=== PATIENT | male | born 1945 | race Caucasian/White ===

== ENCOUNTER 2016-11-28 22:16 | Inpatient (IN) | payer MEDICARE, OTHER ==
[~2016-11-28] VITALS: Ht 172.7 cm; Wt 107.0 kg
[2016-11-28] MEDS ORDERED: LIDOCAINE 2% JEL UROJET 10 ML MM ONE (23:00)
[2016-11-28 23:19] LABS: ANION GAP 20 (5-14); CALCIUM, SERUM 7.4 mg/dL (8.5-10.1); CARBON DIOXIDE 17 mmol/L (21-32); CHLORIDE 116 mmol/L (98-107); GLUCOSE 296 mg/dL (74-106); POTASSIUM 3.9 mmol/L (3.5-5.1); SODIUM SERUM 149 mmol/L (136-145); UREA NITROGEN, BLOOD 59 mg/dL (7-18)
[2016-11-28 23:22] LABS: INR 1.04 (0.87-1.13); PROTHROMBIN TIME 11.2 SECS (9.5-12.7)
[2016-11-28 23:25] LABS: ACETAMINOPHEN 0 ug/ml (10-30); ALANINE AMINOTRANSFERASE 14 U/L (12-78); ALBUMIN 2.5 g/dL (3.4-5.0); ASPARTATE AMINOTRANSFERASE 15 U/L (15-37); BILIRUBIN,DIRECT 0.1 mg/dL (0.0-0.2); BILIRUBIN,TOTAL 0.3 mg/dL (0.2-1.0); INDIRECT BILIRUBIN 0.2 mg/dL (0.0-1.1); SALICYLATE 1.3 mg/dL (2.8-20.0); TOTAL PROTEIN, SERUM 6.1 g/dL (6.4-8.2)
[2016-11-28 23:27] LABS: TROPONIN I 0.206 ng/mL (0.00-0.056)
[2016-11-28 23:28] LABS: KETONES,URINE NEGATIVE (NEGATIVE); LEUKOCYTE ESTERASE ,URINE NEGATIVE (NEGATIVE)
[2016-11-28 23:31] LABS: CANNABINOID, URINE NEGATIVE (NEGATIVE); PHENCYCLIDINE SCREEN,URINE NEGATIVE (NEGATIVE)
[2016-11-28 23:34] LABS: THYROID STIMULATING HORMONE 3.342 uIU/mL (0.358-3.74)
[2016-11-28 23:40] LABS: ADD UA MICROSCOPIC YES
[2016-11-28] MEDS ORDERED: PANTOPRAZOLE 40 MG VIAL ONE (23:45)
[2016-11-28] MEDS ORDERED: IV NS 0.9% 500 ML IV ONE (23:46)
[2016-11-28] MEDS ORDERED: IV SET PRIMARY 1 EA INFUS.SET MC ONE (23:46)
[2016-11-28] MEDS ORDERED: IV SET PRIMARY PUMP SET 1 EA INFUS.SET MC ONE (23:46)
[2016-11-28] MEDS ORDERED: IV NS 0.9% 100 ML IV ONE (23:46)
[2016-11-28 23:53] LABS: RBC,URINE 0-2 /HPF (0-2); WBC,URINE 0-2 /HPF (0-3)
[2016-11-28 23:54] LABS: ADD URINE CULTURE NO; MUCUS,URINE Rare /LPF (None Seen)
[2016-11-29] VITALS (46 sets, daily range): BP systolic 92–143; BP diastolic 38–84
[2016-11-29] MEDS ORDERED: PANTOPRAZOLE 80 MG in IV NS 0.9% 500 ML IV PRN ×2
[2016-11-29] MEDS ORDERED: PANTOPRAZOLE 80 MG in IV NS 0.9% 500 ML IV ONE ×2
[2016-11-29] MEDS ORDERED: ASPIRIN 325 MG TABLET PO ONE
[2016-11-29] MEDS ORDERED: PANTOPRAZOLE 80 MG in IV NS 0.9% 100 ML IV ONE ×2
[2016-11-29 00:08] LABS: BASOPHILS % (AUTO) 0.4 % (0.0-2.0); DIFF TOTAL % 100 %; EOSINOPHILS % (AUTO) 0.3 % (0.0-6.0); LYMPHOCYTES # (AUTO) 1.8 /CMM (0.8-4.8); LYMPHOCYTES % (AUTO) 13.8 % (20.0-44.0); MEAN CORPUSCULAR HEMOGLOBIN 29 PG (26.0-33.0); MEAN CORPUSCULAR HGB CONC 32 g/dl (31.0-36.0); MEAN CORPUSCULAR VOLUME 90 fL (80-96); MONOCYTES # (AUTO) 1.1 /CMM (0.1-1.30); MONOCYTES % (AUTO) 8.8 % (2.0-12.0); NEUTROPHILS # (AUTO) 9.9 /CMM (1.8-8.9); NEUTROPHILS % (AUTO) 76.7 % (43.0-81.0); PLATELET COUNT (AUTO) 192 /CMM (150-450); WHITE BLOOD COUNT (AUTO) 12.9 K/uL (4.3-11.0)
[2016-11-29 00:09] LABS: RED BLOOD CELL COUNT(AUTO) 1.18 MIL/uL (4.5-6.0)
[2016-11-29 00:10] LABS: HEMATOCRIT 11 % (39-51); HEMOGLOBIN 3.4 g/dL (13.5-17.5)
[2016-11-29] MEDS ORDERED: ASPIRIN 81 MG TAB.CHEW ONE (00:43)
[2016-11-29 00:52] LABS: BAND % (MANUAL) 1 % (0.0-5.0); LYMPHOCYTES % (MANUAL) 18 % (16-48); PLATELET ESTIMATE ADEQUATE
[2016-11-29 00:53] LABS: ANISOCYTOSIS 1+; HYPOCHROMASIA 4+
[2016-11-29] MEDS ORDERED: IV NS 0.9% 500 ML IV ONE (01:45)
[2016-11-29] MEDS ORDERED: BLOOD IV SET 1 EA INFUS.SET MC ONE ×3 (01:45→22:44)
[2016-11-29] MEDS ORDERED: ZOLPIDEM TARTRATE 5 MG TABLET PO PRN (05:00)
[2016-11-29] MEDS ORDERED: HYDROCODONE/APAP 5/325MG 1 EACH TABLET PO PRN (05:00)
[2016-11-29] MEDS ORDERED: DEXTROSE 50%-WATER 50 ML DISP.SYRIN IV PRN (05:00)
[2016-11-29] MEDS ORDERED: MAG HYDROX/AL HYDROX/SIMETH 30 ML UDC PO PRN (05:00)
[2016-11-29] MEDS ORDERED: ONDANSETRON HCL/PF 4 MG/2 ML VIAL IVP PRN (05:00)
[2016-11-29] MEDS ORDERED: ACETAMINOPHEN 325 MG TABLET PO PRN (05:00)
[2016-11-29] MEDS ORDERED: IV NS 0.9% 1,000 ML BAG IV ONE (05:00)
[2016-11-29] MEDS ORDERED: MAGNESIUM HYDROXIDE 30 ML UDC PO PRN (05:00)
[2016-11-29] MEDS: BLOOD SUGAR DIAGNOSTIC 1 EACH STRIP IN SCH ×5 (05:33→21:03)
[2016-11-29] MEDS: INSULIN REGULAR, HUMAN 100 UNIT/ML 3 ML VIAL SQ PRN ×5 (05:36→21:06)
[2016-11-29] MEDS ORDERED: IV SET PRIMARY PUMP SET 1 EA INFUS.SET MC ONE (06:21)
[2016-11-29] MEDS: IV NS 0.9% 1,000 ML IV PRN ×2 (06:21→20:16)
[2016-11-29] MEDS ORDERED: IV NS 0.9% 1,000 ML ONE (07:05)
[2016-11-29 08:30] LABS: IRON, SERUM 16 ug/dl (50-175); PERCENT SATURATION 6 % (14-33); TOTAL IRON BINDING CAPACITY 270 ug/dl (250-450)
[2016-11-29 09:20] LABS: LYMPHOCYTES # (AUTO) 1.6 /CMM (0.8-4.8); MONOCYTES # (AUTO) 1.1 /CMM (0.1-1.30)
[2016-11-29 09:27] LABS: BASOPHILS % (AUTO) 0.5 % (0.0-2.0); DIFF TOTAL % 100 %; EOSINOPHILS % (AUTO) 0.2 % (0.0-6.0); LYMPHOCYTES % (AUTO) 15.8 % (20.0-44.0); MEAN CORPUSCULAR HEMOGLOBIN 29 PG (26.0-33.0); MEAN CORPUSCULAR HGB CONC 33 g/dl (31.0-36.0); MEAN CORPUSCULAR VOLUME 88 fL (80-96); MONOCYTES % (AUTO) 10.8 % (2.0-12.0); NEUTROPHILS # (AUTO) 7.5 /CMM (1.8-8.9); NEUTROPHILS % (AUTO) 72.7 % (43.0-81.0); PLATELET COUNT (AUTO) 154 /CMM (150-450); WHITE BLOOD COUNT (AUTO) 10.3 K/uL (4.3-11.0)
[2016-11-29 09:28] LABS: RED BLOOD CELL COUNT(AUTO) 1.86 MIL/uL (4.5-6.0)
[2016-11-29 09:29] LABS: HEMATOCRIT 16 % (39-51); HEMOGLOBIN 5.3 g/dL (13.5-17.5)
[2016-11-29] MEDS: PANTOPRAZOLE 80 MG in IV NS 0.9% 500 ML IV PRN ×2 (10:00→19:41)
[2016-11-29 10:02] LABS: ANISOCYTOSIS 1+; BAND % (MANUAL) 1 % (0.0-5.0); HYPOCHROMASIA 1+; LYMPHOCYTES % (MANUAL) 19 % (16-48); METAMYELOCYTES % 2 % (0-0); PLATELET ESTIMATE ADEQUATE; POLYCHROMASIA 2+
[2016-11-29 10:03] LABS: ROULEAUX 1+
[2016-11-29] MEDS ORDERED: PLATELET IV SET 1 EA INFUS.SET MC ONE (10:25)
[2016-11-29] MEDS ORDERED: Z GUARD REMEDY 2 OZ OINT TP PRN (12:30)
[2016-11-29] MEDS: Z GUARD REMEDY 2 OZ OINT TP SCH (12:35)
[2016-11-29] MEDS ORDERED: CAPT100T2 PO (14:06)
[2016-11-29] MEDS ORDERED: ALLO100T PO (14:06)
[2016-11-29] MEDS ORDERED: FURO40TA5 PO (14:06)
[2016-11-29] MEDS ORDERED: FERR-58 PO (14:06)
[2016-11-29] MEDS ORDERED: METO-304 PO (14:06)
[2016-11-29] MEDS ORDERED: SIMV10TA6 PO (14:06)
[2016-11-29] MEDS ORDERED: AMLO5TAB2 PO (14:06)
[2016-11-29] MEDS ORDERED: GLIM4TAB2 PO (14:06)
[2016-11-29] MEDS ORDERED: HYDR-3658 PO (14:12)
[2016-11-29] MEDS ORDERED: HYDR25TA4 PO (14:12)
[2016-11-29] MEDS ORDERED: TAMS0.4C34 PO (14:12)
[2016-11-29] MEDS ORDERED: IBUP-1955 PO (14:12)
[2016-11-29] MEDS ORDERED: METF10002 PO (14:12)
[2016-11-29] MEDS ORDERED: IV NS 0.9% 250 ML IV ONE ×2 (16:18→22:44)
[2016-11-29 17:18] LABS: FREE PSA 0.12 ng/mL (0.00-45); THYROID STIMULATING HORMONE 3.24 uIU/mL (0.358-3.74); URIC ACID 10.8 mg/dL (2.6-7.2)
[2016-11-29 21:29] LABS: BASOPHILS % (AUTO) 0.6 % (0.0-2.0); DIFF TOTAL % 100 %; EOSINOPHILS # (AUTO) 0.1 /CMM (0.0-0.7); EOSINOPHILS % (AUTO) 1.5 % (0.0-6.0); HEMATOCRIT 21 % (39-51); LYMPHOCYTES # (AUTO) 1.2 /CMM (0.8-4.8); LYMPHOCYTES % (AUTO) 16.7 % (20.0-44.0); MEAN CORPUSCULAR HEMOGLOBIN 29 PG (26.0-33.0); MEAN CORPUSCULAR HGB CONC 33 g/dl (31.0-36.0); MEAN CORPUSCULAR VOLUME 88 fL (80-96); MONOCYTES # (AUTO) 0.7 /CMM (0.1-1.30); NEUTROPHILS % (AUTO) 71.2 % (43.0-81.0); PLATELET COUNT (AUTO) 112 /CMM (150-450); RED BLOOD CELL COUNT(AUTO) 2.38 MIL/uL (4.5-6.0)
[2016-11-29 21:32] LABS: HEMOGLOBIN 6.8 g/dL (13.5-17.5)
[2016-11-29 21:37] LABS: RETICULOCYTE COUNT 4.8 % (0.6-2.5)
[2016-11-30] VITALS (29 sets, daily range): BP systolic 123–180; BP diastolic 46–124
[2016-11-30 00:59] LABS: EOSINOPHILS % (MANUAL) 1 % (0-4); LYMPHOCYTES % (MANUAL) 19 % (16-48); PLATELET ESTIMATE DECREASED
[2016-11-30 01:00] LABS: ANISOCYTOSIS 1+; HYPOCHROMASIA 3+
[2016-11-30] MEDS: BLOOD SUGAR DIAGNOSTIC 1 EACH STRIP IN SCH ×3 (01:24→09:36)
[2016-11-30] MEDS: INSULIN REGULAR, HUMAN 100 UNIT/ML 3 ML VIAL SQ PRN ×4 (01:25→18:09)
[2016-11-30] MEDS: PANTOPRAZOLE 80 MG in IV NS 0.9% 500 ML IV PRN ×2 (04:56→14:33)
[2016-11-30 05:07] LABS: ALBUMIN 2.6 g/dL (3.4-5.0); BASOPHILS % (AUTO) 0.4 % (0.0-2.0); BILIRUBIN,TOTAL 0.6 mg/dL (0.2-1.0); CALCIUM, SERUM 7.3 mg/dL (8.5-10.1); CREATININE 1.9 mg/dL (0.6-1.3); DIFF TOTAL % 100 %; EOSINOPHILS # (AUTO) 0.1 /CMM (0.0-0.7); EOSINOPHILS % (AUTO) 1.5 % (0.0-6.0); HEMATOCRIT 25 % (39-51); HEMOGLOBIN 8.1 g/dL (13.5-17.5); LYMPHOCYTES % (AUTO) 14.4 % (20.0-44.0); MEAN CORPUSCULAR HEMOGLOBIN 29 PG (26.0-33.0); MEAN CORPUSCULAR HGB CONC 33 g/dl (31.0-36.0); MEAN CORPUSCULAR VOLUME 89 fL (80-96); MONOCYTES # (AUTO) 0.6 /CMM (0.1-1.30); MONOCYTES % (AUTO) 8.2 % (2.0-12.0); NEUTROPHILS # (AUTO) 5.4 /CMM (1.8-8.9); NEUTROPHILS % (AUTO) 75.5 % (43.0-81.0); PHOSPHORUS 4.1 mg/dL (2.5-4.9); PLATELET COUNT (AUTO) 112 /CMM (150-450); POTASSIUM 3.3 mmol/L (3.5-5.1); RED BLOOD CELL COUNT(AUTO) 2.78 MIL/uL (4.5-6.0); TOTAL PROTEIN, SERUM 6.2 g/dL (6.4-8.2); WHITE BLOOD COUNT (AUTO) 7.2 K/uL (4.3-11.0)
[2016-11-30 05:27] LABS: TROPONIN I 0.455 ng/mL (0.00-0.056)
[2016-11-30] MEDS: IV NS 0.9% 1,000 ML IV PRN (06:40)
[2016-11-30] MEDS: Z GUARD REMEDY 2 OZ OINT TP SCH (09:36)
[2016-11-30] MEDS: POTASSIUM CHLORIDE 20 MEQ TAB.PRT.SR PO SCH ×3 (09:45→11:53)
[2016-11-30] MEDS: FUROSEMIDE 40 MG/4 ML VIAL IV SCH ×2 (09:45→12:59)
[2016-11-30] MEDS ORDERED: DEXTROSE 50%-WATER 50 ML DISP.SYRIN IV PRN (10:30)
[2016-11-30] MEDS: BLOOD SUGAR DIAGNOSTIC 1 EACH STRIP VI SCH ×3 (11:53→21:44)
[2016-11-30] MEDS ORDERED: BLOOD SUGAR DIAGNOSTIC 1 EACH STRIP IN SCH (12:00)
[2016-11-30] MEDS: *INSULIN REGULAR(HUMULIN R)HUM 100 UNIT/ML VIAL SQ PRN ×2 (12:17→22:07)
[2016-11-30 12:35] LABS: VIT D, 25-HYDROXY 10.3 ng/mL (30.0-100.0)
[2016-11-30 15:43] LABS: CREATININE, URINE < 13.0 MG/DL (30.0-125.0); URINE SODIUM, RANDOM 138 mmol/l (40-220)
[2016-11-30] MEDS ORDERED: PEG 3350/NA SULF,BICARB,CL/KCL 4,000 ML BOTTLE PO ONE (22:00)
[2016-12-01] VITALS: BP_SYST 140; BP_SYST 159; BP_DIAS 56; BP_DIAS 76
[2016-12-01] MEDS: PANTOPRAZOLE 80 MG in IV NS 0.9% 500 ML IV PRN ×3 (00:17→22:17)
[2016-12-01 04:00] VITALS: BP 124/85
[2016-12-01] MEDS: BLOOD SUGAR DIAGNOSTIC 1 EACH STRIP VI SCH ×4 (06:33→22:21)
[2016-12-01] MEDS: INSULIN REGULAR, HUMAN 100 UNIT/ML 3 ML VIAL SQ PRN ×3 (06:34→17:17)
[2016-12-01 07:07] VITALS: BP 148/59
[2016-12-01 07:40] LABS: BASOPHILS % (AUTO) 0.4 % (0.0-2.0); DIFF TOTAL % 100 %; EOSINOPHILS # (AUTO) 0.2 /CMM (0.0-0.7); EOSINOPHILS % (AUTO) 3.5 % (0.0-6.0); HEMATOCRIT 24 % (39-51); LYMPHOCYTES # (AUTO) 0.9 /CMM (0.8-4.8); MEAN CORPUSCULAR HEMOGLOBIN 29 PG (26.0-33.0); MEAN CORPUSCULAR HGB CONC 33 g/dl (31.0-36.0); MEAN CORPUSCULAR VOLUME 88 fL (80-96); MONOCYTES # (AUTO) 0.5 /CMM (0.1-1.30); MONOCYTES % (AUTO) 9.3 % (2.0-12.0); NEUTROPHILS # (AUTO) 4.1 /CMM (1.8-8.9); NEUTROPHILS % (AUTO) 70.8 % (43.0-81.0); PLATELET COUNT (AUTO) 94 /CMM (150-450); RED BLOOD CELL COUNT(AUTO) 2.73 MIL/uL (4.5-6.0); WHITE BLOOD COUNT (AUTO) 5.7 K/uL (4.3-11.0)
[2016-12-01 08:12] LABS: TROPONIN I 0.244 ng/mL (0.00-0.056)
[2016-12-01 08:17] LABS: ALBUMIN 2.4 g/dL (3.4-5.0); BILIRUBIN,TOTAL 0.6 mg/dL (0.2-1.0); CREATININE 1.5 mg/dL (0.6-1.3); PHOSPHORUS 3.2 mg/dL (2.5-4.9); POTASSIUM 3.3 mmol/L (3.5-5.1); TOTAL PROTEIN, SERUM 5.8 g/dL (6.4-8.2)
[2016-12-01] MEDS ORDERED: BUMETANIDE INJ 8 MG in IV NS 0.9% 48 ML IV ONE (09:00)
[2016-12-01 09:39] LABS: LYMPHOCYTES % (MANUAL) 8 % (16-48)
[2016-12-01 09:40] LABS: ANISOCYTOSIS 1+; PLATELET ESTIMATE DECREASED
[2016-12-01] MEDS: POTASSIUM CL. PREMIX PERIPHER. 50 ML IV SCH ×4 (10:15→15:10)
[2016-12-01] MEDS ORDERED: SECONDARY IV SET 1 EA INFUS.SET MC ONE (10:22)
[2016-12-01] MEDS ORDERED: IV D5W 1,000 ML IV ONE (11:00)
[2016-12-01 12:16] LABS: HEPATITIS C VIRUS AB <0.1 s/co ratio (0.0-0.9)
[2016-12-01] MEDS: Z GUARD REMEDY 2 OZ OINT TP SCH (12:39)
[2016-12-01 16:00] VITALS: BP_SYST 140; BP_SYST 142; BP_DIAS 66; BP_DIAS 75
[2016-12-01 20:00] VITALS: BP 150/57
[2016-12-01] MEDS ORDERED: PANTOPRAZOLE 40 MG TABLET.DR PO SCH (21:00)
[2016-12-01] MEDS ORDERED: PANTOPRAZOLE 40 MG VIAL IV SCH (21:00)
[2016-12-01] MEDS: *INSULIN REGULAR(HUMULIN R)HUM 100 UNIT/ML VIAL SQ PRN (23:12)
[2016-12-02] VITALS (11 sets, daily range): BP systolic 106–154; BP diastolic 54–75
[2016-12-02] MEDS: BLOOD SUGAR DIAGNOSTIC 1 EACH STRIP VI SCH ×4 (06:08→21:15)
[2016-12-02] MEDS: INSULIN REGULAR, HUMAN 100 UNIT/ML 3 ML VIAL SQ PRN ×2 (06:10→12:16)
[2016-12-02 07:51] LABS: ALBUMIN 2.1 g/dL (3.4-5.0); BILIRUBIN,TOTAL 0.5 mg/dL (0.2-1.0); CALCIUM, SERUM 6.9 mg/dL (8.5-10.1); CREATININE 1.4 mg/dL (0.6-1.3); PHOSPHORUS 3.5 mg/dL (2.5-4.9); POTASSIUM 3.2 mmol/L (3.5-5.1); TOTAL PROTEIN, SERUM 5.5 g/dL (6.4-8.2)
[2016-12-02] MEDS ORDERED: Magnesium 1GM/D5W 100ML PREMIX 100 ML IV SCH (08:00)
[2016-12-02] MEDS ORDERED: POTASSIUM CHLORIDE 20 MEQ TAB.PRT.SR PO ONE (08:00)
[2016-12-02 08:14] LABS: HEPATITIS Be AG Negative (Negative)
[2016-12-02 09:07] LABS: BASOPHILS % (AUTO) 0.6 % (0.0-2.0); DIFF TOTAL % 100 %; EOSINOPHILS # (AUTO) 0.2 /CMM (0.0-0.7); EOSINOPHILS % (AUTO) 4.6 % (0.0-6.0); HEMATOCRIT 23 % (39-51); HEMOGLOBIN 7.4 g/dL (13.5-17.5); LYMPHOCYTES # (AUTO) 0.8 /CMM (0.8-4.8); LYMPHOCYTES % (AUTO) 14.3 % (20.0-44.0); MEAN CORPUSCULAR HEMOGLOBIN 29 PG (26.0-33.0); MEAN CORPUSCULAR HGB CONC 33 g/dl (31.0-36.0); MEAN CORPUSCULAR VOLUME 88 fL (80-96); MONOCYTES # (AUTO) 0.5 /CMM (0.1-1.30); MONOCYTES % (AUTO) 8.9 % (2.0-12.0); NEUTROPHILS # (AUTO) 3.8 /CMM (1.8-8.9); NEUTROPHILS % (AUTO) 71.6 % (43.0-81.0); PLATELET COUNT (AUTO) 86 /CMM (150-450); RED BLOOD CELL COUNT(AUTO) 2.57 MIL/uL (4.5-6.0); WHITE BLOOD COUNT (AUTO) 5.3 K/uL (4.3-11.0)
[2016-12-02] MEDS ORDERED: SECONDARY IV SET 1 EA INFUS.SET MC ONE (09:19)
[2016-12-02] MEDS: PANTOPRAZOLE 80 MG in IV NS 0.9% 500 ML IV PRN ×2 (09:26→19:43)
[2016-12-02] MEDS: Z GUARD REMEDY 2 OZ OINT TP SCH (09:28)
[2016-12-02] MEDS ORDERED: IV NS 0.9% 250 ML IV ONE (13:32)
[2016-12-02] MEDS ORDERED: BLOOD IV SET 1 EA INFUS.SET MC ONE ×2 (13:32→13:55)
[2016-12-02] MEDS: *INSULIN REGULAR(HUMULIN R)HUM 100 UNIT/ML VIAL SQ PRN (21:15)
[2016-12-03] MEDS: PANTOPRAZOLE 80 MG in IV NS 0.9% 500 ML IV PRN (06:19)
[2016-12-03] MEDS: BLOOD SUGAR DIAGNOSTIC 1 EACH STRIP VI SCH ×2 (06:19→12:05)
[2016-12-03] MEDS: INSULIN REGULAR, HUMAN 100 UNIT/ML 3 ML VIAL SQ PRN ×2 (06:20→12:10)
[2016-12-03 07:44] LABS: BASOPHILS % (AUTO) 0.4 % (0.0-2.0); DIFF TOTAL % 100 %; EOSINOPHILS # (AUTO) 0.3 /CMM (0.0-0.7); EOSINOPHILS % (AUTO) 7.2 % (0.0-6.0); HEMATOCRIT 26 % (39-51); HEMOGLOBIN 8.4 g/dL (13.5-17.5); LYMPHOCYTES # (AUTO) 0.8 /CMM (0.8-4.8); MEAN CORPUSCULAR HEMOGLOBIN 28 PG (26.0-33.0); MEAN CORPUSCULAR HGB CONC 33 g/dl (31.0-36.0); MEAN CORPUSCULAR VOLUME 87 fL (80-96); MONOCYTES # (AUTO) 0.5 /CMM (0.1-1.30); MONOCYTES % (AUTO) 10.4 % (2.0-12.0); NEUTROPHILS # (AUTO) 3.1 /CMM (1.8-8.9); PLATELET COUNT (AUTO) 86 /CMM (150-450); RED BLOOD CELL COUNT(AUTO) 2.97 MIL/uL (4.5-6.0); WHITE BLOOD COUNT (AUTO) 4.8 K/uL (4.3-11.0)
[2016-12-03 07:59] LABS: CALCIUM, SERUM 6.8 mg/dL (8.5-10.1); CREATININE 1.3 mg/dL (0.6-1.3); PHOSPHORUS 3.5 mg/dL (2.5-4.9); POTASSIUM 3.6 mmol/L (3.5-5.1)
[2016-12-03 08:00] VITALS: BP 142/64
[2016-12-03] MEDS: Z GUARD REMEDY 2 OZ OINT TP SCH (09:27)
[2016-12-03 10:00] VITALS: BP 142/64
[2016-12-03 10:00] LABS: BAND % (MANUAL) 1 % (0.0-5.0); BASOPHILS % (MANUAL) 0 % (0.0-2.0); EOSINOPHILS % (MANUAL) 6 % (0-4); LYMPHOCYTES % (MANUAL) 18 % (16-48)
[2016-12-03] MEDS ORDERED: Magnesium 1GM/D5W 100ML PREMIX 100 ML IV SCH (10:00)
[2016-12-03 10:01] LABS: ANISOCYTOSIS 1+; PLATELET ESTIMATE DECREASED
[2016-12-03] MEDS ORDERED: SECONDARY IV SET 1 EA INFUS.SET MC ONE ×2 (10:19→13:58)
[2016-12-03] MEDS ORDERED: SOD FERRIC GLUC 125 MG in IV NS 0.9% 100 ML IV SCH (14:00)
[2016-12-03] MEDS ORDERED: IV NS 0.9% 250 ML IV ONE (14:04)
[2016-12-03] MEDS ORDERED: IV SET PRIMARY PUMP SET 1 EA INFUS.SET MC ONE (14:04)
[2016-12-03 16:00] VITALS: BP 115/52
[2016-12-06 11:22] LABS: HEPATITIS Be AB Negative (Negative)
== END 2016-12-03 17:37 | disposition home health service (06) | DRG 377 ==
LOC: ER 22:17 → ICU 11-29 01:44 → TELE 11-30 16:39 → MED 12-01 12:20
PROVIDERS: ADMIT Nurse Practitioner Acute Care; ATTEND Nurse Practitioner Acute Care
PROC: 30233K1 Transfusion of Nonautologous Frozen Plasma into Peripheral Vein, Percutaneous Approach (ICD-10-PCS; principal; 2016-11-29)
PROC: 30233N1 Transfusion of Nonautologous Red Blood Cells into Peripheral Vein, Percutaneous Approach (ICD-10-PCS; 2016-11-29)
PROC: 0DB98ZX Excision of Duodenum, Via Natural or Artificial Opening Endoscopic, Diagnostic (ICD-10-PCS; 2016-12-01)
PROC: 0DB68ZX Excision of Stomach, Via Natural or Artificial Opening Endoscopic, Diagnostic (ICD-10-PCS; 2016-12-01)
PROC: 0DBK8ZX Excision of Ascending Colon, Via Natural or Artificial Opening Endoscopic, Diagnostic (ICD-10-PCS; 2016-12-01)
DX: K26.4 Chronic or unspecified duodenal ulcer with hemorrhage (principal); I21.4 Non-ST elevation (NSTEMI) myocardial infarction; G93.41 Metabolic encephalopathy; R53.2 Functional quadriplegia; N17.0 Acute kidney failure with tubular necrosis; E87.0 Hyperosmolality and hypernatremia; I50.20 Unspecified systolic (congestive) heart failure; D62 Acute posthemorrhagic anemia; E46 Unspecified protein-calorie malnutrition; I13.0 Hypertensive heart and chronic kidney disease with heart failure and stage 1 through stage 4 chronic kidney disease, or unspecified chronic kidney disease; D68.59 Other primary thrombophilia; J98.11 Atelectasis; E86.0 Dehydration; K74.60 Unspecified cirrhosis of liver; E11.9 Type 2 diabetes mellitus without complications; N18.3 Chronic kidney disease, stage 3 (moderate); E66.01 Morbid (severe) obesity due to excess calories; Z68.36 Body mass index [BMI] 36.0-36.9, adult; D50.0 Iron deficiency anemia secondary to blood loss (chronic); E11.22 Type 2 diabetes mellitus with diabetic chronic kidney disease; E86.1 Hypovolemia; K64.8 Other hemorrhoids; K57.30 Diverticulosis of large intestine without perforation or abscess without bleeding; K63.5 Polyp of colon; I73.9 Peripheral vascular disease, unspecified; K76.0 Fatty (change of) liver, not elsewhere classified; N28.1 Cyst of kidney, acquired
CPT/HCPCS: 36415; 70450-TC; 71010-TC; 71250-TC; 76700-TC; 80048-TC; 80053-TC; 80061-TC; 80074; 80076-TC; 80305; 81000-TC; 82140-TC; 82272-TC; 82306; 82378; 82570-TC; 82728-TC; 82746; 82962-TC; 83540-TC; 83735-TC; 83880; 84100-TC; 84153-TC; 84154-TC; 84300-TC; 84443-TC; 84484-TC; 84550-TC; 85025-TC; 85045-TC; 85652-TC; 85730-TC; 86704; 86706; 86707; 86708; 86709; 86850-TC; 86921-TC; 87081-TC; 87340; 87350; 88305-TC; 88313-TC; 88342; 93307-TC; 93971-TC; A4216; A4606; C9113; G0480; G6039-TC; J1815; J1940; J2916; J3475; J3480; J3490; J7030; J7040; J7050; J7070; P9016-BL; P9017-BL; Z7610

== ENCOUNTER 2023-01-18 08:54 | Emergency (ER) | payer MEDICARE, OTHER ==
[~2023-01-18] VITALS: Ht 167.6 cm; Wt 101.2 kg
[~2023-01-18 08:54] MED LIST: ALLO100T PO; AMLO-212 PO; CAPT100T2 PO; FERR325T23 PO; FURO40TA5 PO; GLIM4TAB37 PO; HYDR-3980 PO; HYDR25TA4 PO; IBUP-1955 PO; METF-442 PO; METO-357 PO; SIMV10TA98 PO; TAMS0.4C34 PO
--- NOTE | 2023-01-18 09:12 | NUR ---
number for transport back [phone]
--- NOTE | 2023-01-18 09:22 | NUR ---
DR. LUGO AT BEDSIDE
--- NOTE | 2023-01-18 09:41 | NUR ---
DINKEY LOCOMOTIVE ENGINEER AT BEDSIDE
--- NOTE | 2023-01-18 09:50 | NUR ---
CONSENT FOR US GUIDED PARACENTESIS OBTAINED
--- NOTE | 2023-01-18 09:59 | NUR ---
ULTRASOUND AT BEDSIDE
[2023-01-18 10:19] LABS: BASOPHILS % (AUTO) 0.8 % (0.0-2.0); EOSINOPHILS % (AUTO) 5.7 % (0.0-6.0); HEMATOCRIT 25 % (39-51); HEMOGLOBIN 8.2 g/dL (13.5-17.5); LYMPHOCYTES # (AUTO) 0.6 K/uL (0.8-4.8); LYMPHOCYTES % (AUTO) 14.1 % (20.0-44.0); MEAN CORPUSCULAR HGB CONC 33 g/dl (31.0-36.0); MEAN CORPUSCULAR VOLUME 94 fL (80-96); MONOCYTES # (AUTO) 0.3 K/uL (0.1-1.30); NEUTROPHILS # (AUTO) 2.9 K/uL (1.8-8.9); NEUTROPHILS % (AUTO) 72.4 % (43.0-81.0); PLATELET COUNT (AUTO) 59 K/uL (150-450); RED BLOOD CELL COUNT(AUTO) 2.68 MIL/uL (4.5-6.0)
[2023-01-18 10:27] LABS: CALCIUM, SERUM 8.1 mg/dL (8.5-10.1); CARBON DIOXIDE 20 mmol/L (21-32); CHLORIDE 114 mmol/L (98-107); CREATININE 1.9 mg/dL (0.6-1.3); GLUCOSE 259 mg/dL (74-106); POTASSIUM 5.7 mmol/L (3.5-5.1); SODIUM SERUM 141 mmol/L (136-145); UREA NITROGEN, BLOOD 61 mg/dL (7-18)
[2023-01-18] MEDS ORDERED: SODIUM POLYSTYRENE SULFONATE 15 G/60 ML BOTTLE PO ONE (10:30)
[2023-01-18] MEDS ORDERED: ALBUMIN 25% 12.5 GM/50 ML BOTTLE IV ONE (11:30)
--- NOTE | 2023-01-18 11:45 | NUR ---
9,200 CC OF FLUID REMOVED
[2023-01-18] MEDS ORDERED: ALBUMIN 25% 50 ML IV ONE ×2 (11:47→12:26)
[2023-01-18] MEDS ORDERED: SODIUM POLYSTYRENE SULFONATE 15 G/60 ML BOTTLE ONE (12:47)
--- NOTE | 2023-01-18 13:42 | NUR ---
CAREGIVER FROM FACILITY PICKED UP PT TO TAKE THEM BACK
[2023-01-18 13:44] VITALS: BP 156/66
[2023-01-18 21:54] LABS: EOSINOPHILS % (MANUAL) 7 % (0-4); LYMPHOCYTES % (MANUAL) 16 % (16-48); MONOCYTES % (MANUAL) 4 % (0-11.0); NEUTROPHILS % (MANUAL) 73 (42-76)
== END 2023-01-18 13:44 | disposition home or self-care (01) ==
LOC: ER 09:12
DX: K70.31 Alcoholic cirrhosis of liver with ascites (principal); E11.65 Type 2 diabetes mellitus with hyperglycemia; N18.9 Chronic kidney disease, unspecified; Z79.899 Other long term (current) drug therapy; Z60.2 Problems related to living alone; Z88.0 Allergy status to penicillin
CPT/HCPCS: 49083; 99285; 96365; 85025; 80048; 36415; 85730; 85007; A4223; 76942-TC; P9047

== ENCOUNTER → 2023-01-25 | Emergency (ER) | payer MEDICARE, OTHER ==
[~2023-01-25] VITALS: Ht 167.6 cm; Wt 97.5 kg
[~2023-01-25] MED LIST changes: +ALBUMIN 25% 0 ML IV ONE; +ALBUMIN 25% 12.5 GM/50 ML BOTTLE IV ONE; +ALBUMIN 25% 25 GM in PREMIX 1 EA IV SCH; +SODIUM POLYSTYRENE SULFONATE 15 G/60 ML BOTTLE ONE; +SODIUM POLYSTYRENE SULFONATE 15 G/60 ML BOTTLE PO ONE
[2023-01-25 09:28] VITALS: BP 144/72
--- NOTE | 2023-01-25 09:40 | NUR ---
PAtient AOx4 able to express his concerns. States he has abdominal distension and discomfort, he was at this same ER last week for "fluid removal" Discussed plan of care, patient verbalized agreement. All safety precautions taken.
[2023-01-25 09:58] LABS: BASOPHILS % (AUTO) 0.6 % (0.0-2.0); EOSINOPHILS % (AUTO) 13.6 % (0.0-6.0); HEMATOCRIT 28 % (39-51); HEMOGLOBIN 9.1 g/dL (13.5-17.5); LYMPHOCYTES # (AUTO) 0.5 K/uL (0.8-4.8); LYMPHOCYTES % (AUTO) 12.7 % (20.0-44.0); MEAN CORPUSCULAR HGB CONC 33 g/dl (31.0-36.0); MEAN CORPUSCULAR VOLUME 95 fL (80-96); MONOCYTES # (AUTO) 0.3 K/uL (0.1-1.30); MONOCYTES % (AUTO) 7.3 % (2.0-12.0); NEUTROPHILS # (AUTO) 2.6 K/uL (1.8-8.9); NEUTROPHILS % (AUTO) 65.8 % (43.0-81.0); PLATELET COUNT (AUTO) 87 K/uL (150-450); RED BLOOD CELL COUNT(AUTO) 2.98 MIL/uL (4.5-6.0); WHITE BLOOD COUNT (AUTO) 3.9 K/uL (4.3-11.0)
[2023-01-25 10:25] LABS: CALCIUM, SERUM 8.5 mg/dL (8.5-10.1); CARBON DIOXIDE 20 mmol/L (21-32); CHLORIDE 115 mmol/L (98-107); CREATININE 1.7 mg/dL (0.6-1.3); GLUCOSE 227 mg/dL (74-106); POTASSIUM 5.9 mmol/L (3.5-5.1); SODIUM SERUM 143 mmol/L (136-145); UREA NITROGEN, BLOOD 57 mg/dL (7-18)
[2023-01-25 10:31] LABS: ALANINE AMINOTRANSFERASE 17 U/L (12-78); ALBUMIN 2.4 g/dL (3.4-5.0); ALKALINE PHOSPHATASE 134 U/L (46-116); ASPARTATE AMINOTRANSFERASE 26 U/L (15-37); BILIRUBIN,DIRECT 0.1 mg/dL (0.0-0.2); BILIRUBIN,TOTAL 0.4 mg/dL (0.2-1.0); TOTAL PROTEIN, SERUM 6.5 g/dL (6.4-8.2)
--- NOTE | 2023-01-25 11:08 | NUR ---
DOYLE US GUIDED PARACENTESIS AT BEDSIDE 4.5 LITER BRIGHT RED FLUID.
--- NOTE | 2023-01-25 12:09 | NUR ---
CALLED [facility] FOR TRANSPORT ETA 30 MINS.
--- NOTE | 2023-01-25 12:22 | NUR ---
REPORT GIVEN TO ARGENIS GALVAN RN FROM [facility] [phone].
--- NOTE | 2023-01-25 12:39 | NUR ---
IV removed. Catheter intact and site benign. Pressure and 4x4 applied to site. No bleeding noted.Patient discharged to home in stable condition. Written and verbal after care instructions given. Patient verbalizes understanding of instruction.
[2023-01-26 03:50] LABS: BASOPHILS % (MANUAL) 0 % (0.0-2.0); EOSINOPHILS % (MANUAL) 9 % (0-4); LYMPHOCYTES % (MANUAL) 14 % (16-48); MONOCYTES % (MANUAL) 6 % (0-11.0); NEUTROPHILS % (MANUAL) 71 (42-76)
== END ==
LOC: ER 09:22
DX: R18.8 Other ascites (principal); E11.22 Type 2 diabetes mellitus with diabetic chronic kidney disease; I13.0 Hypertensive heart and chronic kidney disease with heart failure and stage 1 through stage 4 chronic kidney disease, or unspecified chronic kidney disease; N18.32 Chronic kidney disease, stage 3b; I50.89 Other heart failure; Z88.0 Allergy status to penicillin; Z79.899 Other long term (current) drug therapy
CPT/HCPCS: 36415; 76942-TC; 80048-TC; 80076-TC; 85025-TC; 85730-TC; 86850-TC; P9047

== ENCOUNTER 2023-02-01 07:53 | Emergency (ER) | payer MEDICARE, OTHER ==
[~2023-02-01] VITALS: Ht 167.6 cm; Wt 95.3 kg
[~2023-02-01 07:53] MED LIST changes: -ALBUMIN 25% 0 ML IV ONE; -ALBUMIN 25% 12.5 GM/50 ML BOTTLE IV ONE; -ALBUMIN 25% 25 GM in PREMIX 1 EA IV SCH; -SODIUM POLYSTYRENE SULFONATE 15 G/60 ML BOTTLE ONE; -SODIUM POLYSTYRENE SULFONATE 15 G/60 ML BOTTLE PO ONE
[2023-02-01 08:35] LABS: BASOPHILS # (AUTO) 0.1 K/uL (0.0-0.2); BASOPHILS % (AUTO) 1.5 % (0.0-2.0); EOSINOPHILS % (AUTO) 8.8 % (0.0-6.0); HEMATOCRIT 28 % (39-51); HEMOGLOBIN 9.1 g/dL (13.5-17.5); LYMPHOCYTES # (AUTO) 0.7 K/uL (0.8-4.8); MEAN CORPUSCULAR HGB CONC 32 g/dl (31.0-36.0); MEAN CORPUSCULAR VOLUME 94 fL (80-96); MONOCYTES # (AUTO) 0.6 K/uL (0.1-1.30); MONOCYTES % (AUTO) 13.3 % (2.0-12.0); NEUTROPHILS # (AUTO) 2.8 K/uL (1.8-8.9); NEUTROPHILS % (AUTO) 60.4 % (43.0-81.0); PLATELET COUNT (AUTO) 98 K/uL (150-450); RED BLOOD CELL COUNT(AUTO) 2.99 MIL/uL (4.5-6.0); WHITE BLOOD COUNT (AUTO) 4.6 K/uL (4.3-11.0)
[2023-02-01 08:59] LABS: CALCIUM, SERUM 8.2 mg/dL (8.5-10.1); CARBON DIOXIDE 20 mmol/L (21-32); CHLORIDE 114 mmol/L (98-107); CREATININE 1.7 mg/dL (0.6-1.3); GLUCOSE 143 mg/dL (74-106); SODIUM SERUM 141 mmol/L (136-145); UREA NITROGEN, BLOOD 55 mg/dL (7-18)
[2023-02-01 11:29] VITALS: BP 113/66
[2023-02-01 14:50] LABS: EOSINOPHILS % (MANUAL) 4 % (0-4); LYMPHOCYTES % (MANUAL) 18 % (16-48); MONOCYTES % (MANUAL) 7 % (0-11.0); NEUTROPHILS % (MANUAL) 71 (42-76)
== END 2023-02-01 11:29 | disposition home or self-care (01) ==
LOC: ER 07:56
DX: R18.8 Other ascites (principal); E11.22 Type 2 diabetes mellitus with diabetic chronic kidney disease; I13.0 Hypertensive heart and chronic kidney disease with heart failure and stage 1 through stage 4 chronic kidney disease, or unspecified chronic kidney disease; N18.32 Chronic kidney disease, stage 3b; I50.9 Heart failure, unspecified; Z88.0 Allergy status to penicillin; Z79.899 Other long term (current) drug therapy
CPT/HCPCS: 36415; 76942-TC; 80048-TC; 85025-TC; 85730-TC

== ENCOUNTER 2023-02-08 08:25 | Emergency (ER) | payer MEDICARE, OTHER ==
[~2023-02-08] VITALS: Ht 165.1 cm; Wt 95.7 kg
--- NOTE | 2023-02-08 08:33 | NUR ---
CONSENT FORM FOR ULTRASOUND GUIDED PARACENTESIS SIGNED BY PT AND PLACED IN CHART
--- NOTE | 2023-02-08 08:45 | NUR ---
PAtient AOx4 able to express his concerns. Patient states he feels good other than the abdomen discomfort. States he has been here a couple of times with the same problem. Discussed plan of care, patietn verbalized agreeement. All safety precautions taken.
[2023-02-08 09:09] LABS: BASOPHILS % (AUTO) 0.5 % (0.0-2.0); EOSINOPHILS % (AUTO) 8.1 % (0.0-6.0); HEMATOCRIT 28 % (39-51); HEMOGLOBIN 9.2 g/dL (13.5-17.5); LYMPHOCYTES # (AUTO) 0.6 K/uL (0.8-4.8); LYMPHOCYTES % (AUTO) 13.5 % (20.0-44.0); MEAN CORPUSCULAR HGB CONC 33 g/dl (31.0-36.0); MEAN CORPUSCULAR VOLUME 93 fL (80-96); MONOCYTES # (AUTO) 0.3 K/uL (0.1-1.30); MONOCYTES % (AUTO) 6.9 % (2.0-12.0); PLATELET COUNT (AUTO) 82 K/uL (150-450); RED BLOOD CELL COUNT(AUTO) 2.97 MIL/uL (4.5-6.0); WHITE BLOOD COUNT (AUTO) 4.3 K/uL (4.3-11.0)
[2023-02-08 09:21] LABS: CARBON DIOXIDE 19 mmol/L (21-32); CHLORIDE 113 mmol/L (98-107); CREATININE 1.9 mg/dL (0.6-1.3); GLUCOSE 167 mg/dL (74-106); POTASSIUM 4.7 mmol/L (3.5-5.1); SODIUM SERUM 142 mmol/L (136-145); UREA NITROGEN, BLOOD 60 mg/dL (7-18)
--- NOTE | 2023-02-08 11:04 | NUR ---
[facility] [place] ph. [phone] [facility] will make transport arrangements, will call back with ETA
--- NOTE | 2023-02-08 11:12 | NUR ---
Patient AOX4, per radiologist Paracentesis completed, approx. 4600 mls removed. Dressing applied by radiologist. Patient with no signs of discomfort. States he feels better.
[2023-02-08 11:53] VITALS: BP 118/59
[2023-02-08 21:39] LABS: EOSINOPHILS % (MANUAL) 6 % (0-4); LYMPHOCYTES % (MANUAL) 12 % (16-48); MONOCYTES % (MANUAL) 8 % (0-11.0); NEUTROPHILS % (MANUAL) 74 (42-76)
== END 2023-02-08 11:54 | disposition home or self-care (01) ==
LOC: ER 08:37
DX: R18.8 Other ascites (principal); I13.0 Hypertensive heart and chronic kidney disease with heart failure and stage 1 through stage 4 chronic kidney disease, or unspecified chronic kidney disease; E11.22 Type 2 diabetes mellitus with diabetic chronic kidney disease; N18.32 Chronic kidney disease, stage 3b; I50.9 Heart failure, unspecified; Z88.0 Allergy status to penicillin; Z79.899 Other long term (current) drug therapy
CPT/HCPCS: 36415; 76942-TC; 80048-TC; 85025-TC; 85730-TC

== ENCOUNTER 2023-02-15 09:13 | Emergency (ER) | payer MEDICARE, OTHER ==
[~2023-02-15] VITALS: Ht 165.1 cm; Wt 92.5 kg
--- NOTE | 2023-02-15 09:27 | NUR ---
CONSENT FOR PARACENTESIS OBTAINED AND PLACED IN PT'S CHART
--- NOTE | 2023-02-15 10:03 | NUR ---
CALLED [facility] AND SET UP BLS TRANSPORT ETA [id number]
--- NOTE | 2023-02-15 10:53 | NUR ---
Patient discharged to home in stable condition. Written and verbal after care instructions given. Patient verbalizes understanding of instruction.
[2023-02-15 10:54] VITALS: BP 110/40
== END 2023-02-15 10:54 | disposition home or self-care (01) ==
LOC: ER 09:18
DX: R18.8 Other ascites (principal); I12.9 Hypertensive chronic kidney disease with stage 1 through stage 4 chronic kidney disease, or unspecified chronic kidney disease; I50.9 Heart failure, unspecified; E78.5 Hyperlipidemia, unspecified; E11.22 Type 2 diabetes mellitus with diabetic chronic kidney disease; N18.32 Chronic kidney disease, stage 3b; Z79.899 Other long term (current) drug therapy; Z88.0 Allergy status to penicillin
CPT/HCPCS: 76942-TC

== ENCOUNTER 2023-02-22 09:33 | Emergency (ER) | payer MEDICARE, OTHER ==
[~2023-02-22] VITALS: Ht 167.6 cm; Wt 93.0 kg
--- NOTE | 2023-02-22 09:45 | NUR ---
BIB FACILTY FOR ULTRASOUND PAPRACENTESIS, PT ABDOMEN IS DISTENDED. IS HERE EVERY SUNDAY FOR PARACENTESIS. VITALS ARE WITHIN NORMAL LIMITS. WARM BLANKET PROVIDED FOR COMFORT.
--- NOTE | 2023-02-22 09:55 | NUR ---
CONSENT FOR ULTRASOUND GUIDED PARACENTESIS SIGNED AND PLACED IN PT'S CHART
[2023-02-22 10:52] LABS: CALCIUM, SERUM 8.3 mg/dL (8.5-10.1); CARBON DIOXIDE 21 mmol/L (21-32); CHLORIDE 112 mmol/L (98-107); GLUCOSE 194 mg/dL (74-106); POTASSIUM 4.6 mmol/L (3.5-5.1); SODIUM SERUM 141 mmol/L (136-145); UREA NITROGEN, BLOOD 67 mg/dL (7-18)
[2023-02-22 11:31] LABS: BASOPHILS % (AUTO) 0.7 % (0.0-2.0); EOSINOPHILS % (AUTO) 7.5 % (0.0-6.0); HEMATOCRIT 29 % (39-51); HEMOGLOBIN 9.5 g/dL (13.5-17.5); LYMPHOCYTES # (AUTO) 0.5 K/uL (0.8-4.8); MEAN CORPUSCULAR HGB CONC 33 g/dl (31.0-36.0); MEAN CORPUSCULAR VOLUME 91 fL (80-96); MONOCYTES # (AUTO) 0.4 K/uL (0.1-1.30); MONOCYTES % (AUTO) 9.7 % (2.0-12.0); NEUTROPHILS # (AUTO) 2.6 K/uL (1.8-8.9); NEUTROPHILS % (AUTO) 68.1 % (43.0-81.0); PLATELET COUNT (AUTO) 74 K/uL (150-450); RED BLOOD CELL COUNT(AUTO) 3.12 MIL/uL (4.5-6.0); WHITE BLOOD COUNT (AUTO) 3.9 K/uL (4.3-11.0)
--- NOTE | 2023-02-22 12:00 | NUR ---
U/S TECH AT BEDSIDE
--- NOTE | 2023-02-22 12:26 | NUR ---
CALLED [facility] AND SET UP BLS TRANSPORT ETA 1331
--- NOTE | 2023-02-22 12:45 | NUR ---
ABDO. PARACENTESIS DONE WITH AN OUTPUT OF 2.4LIT. ASCITIC FLUID
[2023-02-22 18:10] LABS: EOSINOPHILS % (MANUAL) 6 % (0-4); LYMPHOCYTES % (MANUAL) 10 % (16-48); MONOCYTES % (MANUAL) 9 % (0-11.0); NEUTROPHILS % (MANUAL) 75 (42-76)
[2023-02-24 18:01] VITALS: BP 123/46
== END 2023-02-22 11:53 | disposition home or self-care (01) ==
LOC: ER 09:40
DX: R18.8 Other ascites (principal); E11.22 Type 2 diabetes mellitus with diabetic chronic kidney disease; I13.0 Hypertensive heart and chronic kidney disease with heart failure and stage 1 through stage 4 chronic kidney disease, or unspecified chronic kidney disease; N18.32 Chronic kidney disease, stage 3b; I50.9 Heart failure, unspecified; Z88.0 Allergy status to penicillin; Z79.899 Other long term (current) drug therapy
CPT/HCPCS: 36415; 76942-TC; 80048-TC; 85025-TC; 85730-TC

== ENCOUNTER 2023-03-01 08:25 | Emergency (ER) | payer MEDICARE, OTHER ==
[~2023-03-01] VITALS: Ht 170.2 cm; Wt 95.3 kg
--- NOTE | 2023-03-01 08:48 | NUR ---
THE PATIENT IS PRESENTED TO ER FOR ABDOMINAL DISTENSION, REQUESTING PARACENTISIS. THE PATIENT DENIES PAIN. IN ROOM AIR AND DENIES SOB. RESPIRATION REGULAR AND UNLABORED. WILL CONTINUE TO MONITOR THE PATIENT.
[2023-03-01 09:32] LABS: BASOPHILS % (AUTO) 0.6 % (0.0-2.0); EOSINOPHILS % (AUTO) 8.1 % (0.0-6.0); HEMATOCRIT 27 % (39-51); LYMPHOCYTES # (AUTO) 0.5 K/uL (0.8-4.8); LYMPHOCYTES % (AUTO) 12.1 % (20.0-44.0); MEAN CORPUSCULAR HGB CONC 33 g/dl (31.0-36.0); MEAN CORPUSCULAR VOLUME 91 fL (80-96); MONOCYTES # (AUTO) 0.3 K/uL (0.1-1.30); MONOCYTES % (AUTO) 7.6 % (2.0-12.0); NEUTROPHILS # (AUTO) 2.8 K/uL (1.8-8.9); NEUTROPHILS % (AUTO) 71.6 % (43.0-81.0); PLATELET COUNT (AUTO) 65 K/uL (150-450); RED BLOOD CELL COUNT(AUTO) 2.98 MIL/uL (4.5-6.0); WHITE BLOOD COUNT (AUTO) 3.9 K/uL (4.3-11.0)
--- NOTE | 2023-03-01 09:39 | NUR ---
TRANSPORT PROVIDER, LEFT CONTACT NUMBER. [phone]
--- NOTE | 2023-03-01 11:42 | NUR ---
PT DISCHARGE BACK TO NURSING FACILY [facility]IA [facility]. D/C IN STABLE CONDITION.
[2023-03-01 11:45] VITALS: BP 121/60
== END 2023-03-01 11:45 ==
LOC: ER 08:34
DX: R18.8 Other ascites (principal); K74.60 Unspecified cirrhosis of liver; E11.22 Type 2 diabetes mellitus with diabetic chronic kidney disease; I13.0 Hypertensive heart and chronic kidney disease with heart failure and stage 1 through stage 4 chronic kidney disease, or unspecified chronic kidney disease; N18.32 Chronic kidney disease, stage 3b; Z88.0 Allergy status to penicillin; Z79.899 Other long term (current) drug therapy
CPT/HCPCS: 36415; 76942-TC; 85025-TC; 85730-TC

== ENCOUNTER 2023-03-08 10:06 | Outpatient (CLI) | payer MEDICARE, OTHER | END 2023-03-08 23:59 | disposition home or self-care (01) | LOC: US 10:06 | DX: K70.31 Alcoholic cirrhosis of liver with ascites (principal) | CPT/HCPCS: 76942-TC ==

== ENCOUNTER 2023-03-22 10:19 | Outpatient (CLI) | payer MEDICARE, OTHER ==
[2023-03-22] MEDS ORDERED: IV NS 0.9% 250 ML IV ONE (10:53)
[2023-03-22] MEDS ORDERED: IOHEXOL-300 100 ML VIAL IV ONE (10:53)
[2023-03-22] MEDS ORDERED: CT SWABBABLE VALVE TRANS SET 1 EA INFUS.SET MC ONE (10:53)
== END 2023-03-22 23:59 | disposition home or self-care (01) ==
LOC: US 10:19
DX: K70.31 Alcoholic cirrhosis of liver with ascites (principal)
CPT/HCPCS: 76942-TC; J7050; Q9967

== ENCOUNTER 2023-04-12 10:03 | Outpatient (CLI) | payer MEDICARE, OTHER | END 2023-04-12 23:59 | disposition home or self-care (01) | LOC: US 10:03 | DX: K70.31 Alcoholic cirrhosis of liver with ascites (principal) | CPT/HCPCS: 76942-TC ==

== ENCOUNTER 2023-05-11 09:32 | Outpatient (CLI) | payer MEDICARE, OTHER | END 2023-05-11 23:59 | disposition home or self-care (01) | LOC: US 09:32 | DX: R18.8 Other ascites (principal) | CPT/HCPCS: 49083 ==

== ENCOUNTER → 2023-09-20 | Outpatient (CLI) | payer MEDICARE, OTHER ==
[~2023-09-20] MED LIST changes: +ACET-2605 PO; +ALBU18HF2 IH; -ALLO100T PO; +AMIN30LI2 PO; +AMIN887L7 PO; -AMLO-212 PO; +ASCO500T10 PO; +BISA10SU11 RC; +BRIM5DRO EACHEYE; +CALC-1118 PO; +CALC1TAB30 PO; -CAPT100T2 PO; +CEFE1FRO IV; +CHOL100043 PO; +CLOP75TA15 PO; +DOCU-141 PO; +DORZ10DR13 EACHEYE; +ERGO500093 PO; +ESCI5TAB PO; +FAMO20TA8 PO; +GABA-532 PO; +GLIM1TAB18 PO; +GLUC1KIT IM; -HYDR-3980 PO; -HYDR25TA4 PO; -IBUP-1955 PO; +INSU100V27 SQ; +LACT10SO3 PO; +LOPE2CAP PO; +MAGN400O6 PO; -METF-442 PO; -METO-357 PO; +MULT-447 PO; +NA P133E RC; +NEOM1OIN15 TP; +NETA2.5D3 EACHEYE; +POVI100M; +POVI1MED TP; +RIFA550T PO; +SENN-261 PO; +SPIR25TA6 PO; +SULF1TAB48 PO
== END | disposition home or self-care (01) ==
LOC: US 10:13
DX: R18.8 Other ascites (principal)
CPT/HCPCS: 49083

== ENCOUNTER 2023-09-23 19:45 | Inpatient (IN) | payer MEDICARE, OTHER ==
[~2023-09-23] VITALS: Ht 167.6 cm; Wt 108.9 kg
[~2023-09-23 19:45] MED LIST changes: -AMIN887L7 PO; -ASCO500T10 PO; -CALC-1118 PO; -CALC1TAB30 PO; -CEFE1FRO IV; -CLOP75TA15 PO; -ESCI5TAB PO; -GABA-532 PO; -GLIM1TAB18 PO; -GLUC1KIT IM; -LOPE2CAP PO; -NEOM1OIN15 TP; -NETA2.5D3 EACHEYE; -POVI1MED TP; -RIFA550T PO; -SPIR25TA6 PO
[2023-09-23 21:03] LABS: BASOPHILS % (AUTO) 0.4 % (0.0-2.0); EOSINOPHILS # (AUTO) 0.4 K/uL (0.0-0.7); EOSINOPHILS % (AUTO) 8.2 % (0.0-6.0); HEMATOCRIT 27 % (39-51); HEMOGLOBIN 9.1 g/dL (13.5-17.5); LYMPHOCYTES # (AUTO) 0.5 K/uL (0.8-4.8); LYMPHOCYTES % (AUTO) 9.9 % (20.0-44.0); MEAN CORPUSCULAR HEMOGLOBIN 30 PG (26.0-33.0); MEAN CORPUSCULAR HGB CONC 34 g/dl (31.0-36.0); MEAN CORPUSCULAR VOLUME 90 fL (80-96); MONOCYTES # (AUTO) 0.5 K/uL (0.1-1.30); MONOCYTES % (AUTO) 9.7 % (2.0-12.0); NEUTROPHILS # (AUTO) 3.6 K/uL (1.8-8.9); NEUTROPHILS % (AUTO) 71.8 % (43.0-81.0); PLATELET COUNT (AUTO) 85 K/uL (150-450); RED BLOOD CELL COUNT(AUTO) 3.02 MIL/uL (4.5-6.0); RED CELL DISTRIBUTION WIDTH 14.6 % (11.5-15.0)
[2023-09-23 21:10] LABS: CALCIUM, SERUM 8.4 mg/dL (8.5-10.1); CARBON DIOXIDE 20 mmol/L (21-32); CHLORIDE 111 mmol/L (98-107); CREATININE 2.2 mg/dL (0.6-1.3); GLUCOSE 149 mg/dL (74-106); POTASSIUM 5.1 mmol/L (3.5-5.1); SODIUM SERUM 139 mmol/L (136-145); UREA NITROGEN, BLOOD 58 mg/dL (7-18)
[2023-09-23] MEDS ORDERED: IV NS 0.9% 1,000 ML BAG IV ONE (21:30)
[2023-09-23] MEDS ORDERED: CEFEPIME 1 GM in IV D5W 50 ML IV ONE (21:30)
[2023-09-23] MEDS ORDERED: VANCOMYCIN 1 GM in IV D5W 250 ML IV ONE (21:30)
[2023-09-23] MEDS ORDERED: CT SWABBABLE VALVE TRANS SET 1 EA INFUS.SET MC ONE (22:08)
[2023-09-23] MEDS ORDERED: IOHEXOL-300 100 ML VIAL IV ONE (22:08)
[2023-09-23] MEDS ORDERED: IV NS 0.9% 250 ML IV ONE (22:08)
[2023-09-23] MEDS ORDERED: CEFEPIME 1 GM VIAL ONE (22:16)
[2023-09-23 22:39] LABS: EOSINOPHILS % (MANUAL) 9 % (0-4); LYMPHOCYTES % (MANUAL) 10 % (16-48); MONOCYTES % (MANUAL) 6 % (0-11.0); NEUTROPHILS % (MANUAL) 75 (42-76); PLATELET ESTIMATE DECREASED
[2023-09-23 22:40] LABS: ANISOCYTOSIS 1+
[2023-09-23 23:04] LABS: ALANINE AMINOTRANSFERASE 12 U/L (12-78); ALBUMIN 1.8 g/dL (3.4-5.0); ALKALINE PHOSPHATASE 96 U/L (46-116); ASPARTATE AMINOTRANSFERASE 15 U/L (15-37); BILIRUBIN,DIRECT 0.1 mg/dL (0.0-0.2); BILIRUBIN,TOTAL 0.2 mg/dL (0.2-1.0); TOTAL PROTEIN, SERUM 6.5 g/dL (6.4-8.2)
[2023-09-23 23:05] LABS: INR 1.03 (0.91-1.10); PARTIAL THROMBOPLASTIN TIME 30.2 SEC (24.3-34.3); PROTHROMBIN TIME 10.9 SECS (9.2-11.1)
[2023-09-23] MEDS ORDERED: VANCOMYCIN 1 GM /D5W 250 ML PB IV ONE (23:11)
[2023-09-24] MEDS ORDERED: ONDANSETRON HCL/PF 4 MG/2 ML VIAL IVP PRN
[2023-09-24] MEDS ORDERED: MORPHINE SULFATE INJ 2 MG/ML DISP.SYRIN IV PRN
[2023-09-24] MEDS ORDERED: ACETAMINOPHEN 325 MG TABLET PO PRN
[2023-09-24] MEDS ORDERED: Z GUARD REMEDY 4 OZ OINT TP PRN
[2023-09-24] MEDS ORDERED: MORPHINE SULFATE INJ 2 MG/ML DISP.SYRIN ONE (06:52)
[2023-09-24] MEDS: PANTOPRAZOLE 40 MG TABLET.DR PO SCH (07:30)
[2023-09-24] MEDS ORDERED: CLOP75TA15 PO (07:32)
[2023-09-24] MEDS ORDERED: NEOM1OIN15 TP (07:32)
[2023-09-24] MEDS ORDERED: SPIR25TA6 PO (07:32)
[2023-09-24] MEDS ORDERED: NETA2.5D3 EACHEYE (07:32)
[2023-09-24] MEDS ORDERED: POVI1MED TP (07:32)
[2023-09-24] MEDS ORDERED: CALC1TAB30 PO (07:32)
[2023-09-24 12:00] VITALS: BP 132/43; TEMP 97.5; O2SAT 100
[2023-09-24] MEDS ORDERED: FAMOTIDINE (20 MG) 20 MG TABLET PO PRN (14:00)
[2023-09-24] MEDS ORDERED: DEXTROSE 50%-WATER 50 ML DISP.SYRIN IV PRN (14:00)
[2023-09-24] MEDS ORDERED: POVIDONE IODINE TP SCH (14:00)
[2023-09-24] MEDS ORDERED: ALBUTEROL FS 2.5 MG/3 ML VIAL.NEB NEB PRN (14:00)
[2023-09-24] MEDS ORDERED: NA PHOS,M-B/NA PHOS,DI-BA 1 EA ENEMA RC PRN (14:00)
[2023-09-24] MEDS ORDERED: MAGNESIUM HYDROXIDE 30 ML UDC PO PRN (14:00)
[2023-09-24 16:00] VITALS: BP 108/65; TEMP 97.7; O2SAT 100
[2023-09-24] MEDS: TIMOLOL MAL/DORZOLAM HCL OPHTH 10 ML BOTTLE EACHEYE SCH (16:46)
[2023-09-24] MEDS: FUROSEMIDE 40 MG TABLET PO SCH (16:47)
[2023-09-24] MEDS: LACTULOSE 10 G/15 ML UDC (PYXIS) PO SCH ×2 (16:47→17:00)
[2023-09-24] MEDS: FERROUS SULFATE (325 MG) 325 MG/TAB TABLET PO SCH (16:47)
[2023-09-24] MEDS: BRIMONIDINE TARTRATE OPHT SOLN 5 ML BOTTLE EACHEYE SCH (16:47)
[2023-09-24] MEDS: BLOOD SUGAR DIAGNOSTIC 1 EACH STRIP IN SCH ×2 (16:48→22:00)
[2023-09-24] MEDS: INSULIN REGULAR, HUMAN 100 UNIT/ML 3 ML VIAL SQ PRN ×2 (16:49→22:09)
[2023-09-24] MEDS: PROSTAT (PYXIS) 30 ML UDC PO SCH (17:43)
[2023-09-24 18:30] LABS: BASOPHILS % (AUTO) 0.6 % (0.0-2.0); EOSINOPHILS # (AUTO) 0.5 K/uL (0.0-0.7); EOSINOPHILS % (AUTO) 11.5 % (0.0-6.0); HEMATOCRIT 29 % (39-51); HEMOGLOBIN 9.5 g/dL (13.5-17.5); LYMPHOCYTES # (AUTO) 0.4 K/uL (0.8-4.8); LYMPHOCYTES % (AUTO) 7.9 % (20.0-44.0); MEAN CORPUSCULAR HEMOGLOBIN 30 PG (26.0-33.0); MEAN CORPUSCULAR HGB CONC 33 g/dl (31.0-36.0); MEAN CORPUSCULAR VOLUME 90 fL (80-96); MONOCYTES # (AUTO) 0.4 K/uL (0.1-1.30); MONOCYTES % (AUTO) 9.2 % (2.0-12.0); NEUTROPHILS # (AUTO) 3.2 K/uL (1.8-8.9); NEUTROPHILS % (AUTO) 70.8 % (43.0-81.0); PLATELET COUNT (AUTO) 92 K/uL (150-450); RED BLOOD CELL COUNT(AUTO) 3.17 MIL/uL (4.5-6.0); RED CELL DISTRIBUTION WIDTH 14.6 % (11.5-15.0); WHITE BLOOD COUNT (AUTO) 4.5 K/uL (4.3-11.0)
[2023-09-24 18:46] LABS: CALCIUM, SERUM 7.4 mg/dL (8.5-10.1); CARBON DIOXIDE 16 mmol/L (21-32); CHLORIDE 113 mmol/L (98-107); CREATININE 2.1 mg/dL (0.6-1.3); GLUCOSE 201 mg/dL (74-106); MAGNESIUM 2.1 mg/dL (1.8-2.4); POTASSIUM 4.9 mmol/L (3.5-5.1); SODIUM SERUM 138 mmol/L (136-145); UREA NITROGEN, BLOOD 55 mg/dL (7-18)
[2023-09-24 18:47] LABS: CHOLESTEROL 88 mg/dL (<200); HDL CHOLESTEROL 18 mg/dL (40-60); LDL 45 mg/dL (0-99); TRIGLYCERIDES 205 mg/dL (30-150)
[2023-09-24] MEDS ORDERED: LIDOCAINE 1%-EPI 1:100,000 20 ML VIAL TP ONE (19:30)
[2023-09-24] MEDS ORDERED: LIDOCAINE 1% INJ 50 ML MDV IJ ONE (19:34)
[2023-09-24] MEDS ORDERED: LIDOCAINE 1%-EPI 1:100,000 20 ML VIAL ONE (19:37)
[2023-09-24 20:00] VITALS: BP 133/52; TEMP 97.7; O2SAT 100
[2023-09-24] MEDS: SENNOSIDES 8.6 MG TABLET PO SCH ×2 (21:13→21:33)
[2023-09-24] MEDS: SIMVASTATIN 10 MG TABLET PO SCH (21:13)
[2023-09-24] MEDS: TAMSULOSIN 0.4 MG CAP.SR.24H PO SCH (21:13)
[2023-09-24] MEDS ORDERED: CEFEPIME 1 GM in IV D5W 100 ML IV SCH (22:00)
[2023-09-24] MEDS ORDERED: Medication Not On Formulary EA (Netarsudil Mesylat/Latanoprost (Rocklatan 0.02%-0.005% E EACHEYE SCH (22:00)
[2023-09-24] MEDS: VANCOMYCIN HCL 0.75 GM in IV D5W 250 ML IV SCH (22:11)
[2023-09-25 01:29] LABS: ANISOCYTOSIS 1+; BASOPHILS % (MANUAL) 0 % (0.0-2.0); EOSINOPHILS % (MANUAL) 10 % (0-4); LYMPHOCYTES % (MANUAL) 8 % (16-48); MONOCYTES % (MANUAL) 4 % (0-11.0); NEUTROPHILS % (MANUAL) 78 (42-76); PLATELET ESTIMATE DECREASED
[2023-09-25 06:25] LABS: BASOPHILS % (AUTO) 0.7 % (0.0-2.0); EOSINOPHILS # (AUTO) 0.4 K/uL (0.0-0.7); EOSINOPHILS % (AUTO) 10.9 % (0.0-6.0); HEMATOCRIT 26 % (39-51); HEMOGLOBIN 8.9 g/dL (13.5-17.5); LYMPHOCYTES # (AUTO) 0.4 K/uL (0.8-4.8); LYMPHOCYTES % (AUTO) 10.7 % (20.0-44.0); MEAN CORPUSCULAR HEMOGLOBIN 30 PG (26.0-33.0); MEAN CORPUSCULAR HGB CONC 34 g/dl (31.0-36.0); MEAN CORPUSCULAR VOLUME 90 fL (80-96); MONOCYTES # (AUTO) 0.4 K/uL (0.1-1.30); MONOCYTES % (AUTO) 10.6 % (2.0-12.0); NEUTROPHILS # (AUTO) 2.7 K/uL (1.8-8.9); NEUTROPHILS % (AUTO) 67.1 % (43.0-81.0); PLATELET COUNT (AUTO) 92 K/uL (150-450); RED BLOOD CELL COUNT(AUTO) 2.95 MIL/uL (4.5-6.0); RED CELL DISTRIBUTION WIDTH 14.1 % (11.5-15.0); WHITE BLOOD COUNT (AUTO) 4.1 K/uL (4.3-11.0)
[2023-09-25] MEDS: BLOOD SUGAR DIAGNOSTIC 1 EACH STRIP IN SCH ×4 (06:34→22:00)
[2023-09-25 06:46] LABS: CALCIUM, SERUM 7.7 mg/dL (8.5-10.1); CARBON DIOXIDE 17 mmol/L (21-32); CHLORIDE 116 mmol/L (98-107); GLUCOSE 108 mg/dL (74-106); POTASSIUM 5.2 mmol/L (3.5-5.1); SODIUM SERUM 140 mmol/L (136-145); UREA NITROGEN, BLOOD 58 mg/dL (7-18)
[2023-09-25 08:00] VITALS: BP 112/50; TEMP 97.9; O2SAT 100
[2023-09-25] MEDS: BRIMONIDINE TARTRATE OPHT SOLN 5 ML BOTTLE EACHEYE SCH ×2 (08:38→16:03)
[2023-09-25] MEDS: FERROUS SULFATE (325 MG) 325 MG/TAB TABLET PO SCH ×2 (08:38→16:10)
[2023-09-25] MEDS: PANTOPRAZOLE 40 MG TABLET.DR PO SCH (08:38)
[2023-09-25] MEDS: SPIRONOLACTONE 25 MG TABLET PO SCH (08:38)
[2023-09-25] MEDS: CALCIUM CARB 250MG /VITAMIN D 1 UDTAB PO SCH (08:38)
[2023-09-25] MEDS: LACTULOSE 10 G/15 ML UDC (PYXIS) PO SCH ×3 (08:38→16:03)
[2023-09-25] MEDS: MULTIVIT W/MINERALS 1 TAB TABLET PO SCH (08:38)
[2023-09-25] MEDS: DOCUSATE SODIUM 100 MG CAPSULE PO SCH ×2 (08:38→08:46)
[2023-09-25] MEDS: CHOLECALCIFEROL 1,000 UNIT TABLET (VIT D3) PO SCH (08:38)
[2023-09-25] MEDS: TIMOLOL MAL/DORZOLAM HCL OPHTH 10 ML BOTTLE EACHEYE SCH ×2 (08:38→16:03)
[2023-09-25] MEDS: FUROSEMIDE 40 MG TABLET PO SCH ×2 (08:39→16:10)
[2023-09-25] MEDS: PROSTAT (PYXIS) 30 ML UDC PO SCH ×3 (08:46→16:03)
[2023-09-25 12:54] LABS: EOSINOPHILS % (MANUAL) 9 % (0-4); LYMPHOCYTES % (MANUAL) 13 % (16-48); MONOCYTES % (MANUAL) 9 % (0-11.0); NEUTROPHILS % (MANUAL) 69 (42-76); PLATELET ESTIMATE DECREASED
[2023-09-25 16:00] VITALS: BP 124/60; TEMP 98.2; O2SAT 100
[2023-09-25 20:00] VITALS: BP 126/68; TEMP 98; O2SAT 100
[2023-09-25] MEDS: CEFEPIME 1 GM in IV D5W 50 ML IV SCH (22:20)
[2023-09-25] MEDS: SIMVASTATIN 10 MG TABLET PO SCH (22:20)
[2023-09-25] MEDS: SENNOSIDES 8.6 MG TABLET PO SCH (22:20)
[2023-09-25] MEDS: TAMSULOSIN 0.4 MG CAP.SR.24H PO SCH (22:20)
[2023-09-25] MEDS: VANCOMYCIN HCL 0.75 GM in IV D5W 250 ML IV SCH (23:14)
[2023-09-26] MEDS: BLOOD SUGAR DIAGNOSTIC 1 EACH STRIP IN SCH ×4 (06:37→22:00)
[2023-09-26 07:18] LABS: BASOPHILS % (AUTO) 0.5 % (0.0-2.0); EOSINOPHILS # (AUTO) 0.4 K/uL (0.0-0.7); EOSINOPHILS % (AUTO) 10.3 % (0.0-6.0); HEMATOCRIT 27 % (39-51); HEMOGLOBIN 9.1 g/dL (13.5-17.5); LYMPHOCYTES # (AUTO) 0.6 K/uL (0.8-4.8); MEAN CORPUSCULAR HEMOGLOBIN 30 PG (26.0-33.0); MEAN CORPUSCULAR HGB CONC 34 g/dl (31.0-36.0); MEAN CORPUSCULAR VOLUME 89 fL (80-96); MONOCYTES # (AUTO) 0.4 K/uL (0.1-1.30); NEUTROPHILS # (AUTO) 2.4 K/uL (1.8-8.9); NEUTROPHILS % (AUTO) 64.2 % (43.0-81.0); PLATELET COUNT (AUTO) 86 K/uL (150-450); WHITE BLOOD COUNT (AUTO) 3.7 K/uL (4.3-11.0)
[2023-09-26 07:30] VITALS: BP 121/46; TEMP 97.9; O2SAT 99
[2023-09-26 07:48] LABS: CALCIUM, SERUM 7.4 mg/dL (8.5-10.1); CARBON DIOXIDE 16 mmol/L (21-32); CHLORIDE 113 mmol/L (98-107); CREATININE 2.2 mg/dL (0.6-1.3); GLUCOSE 121 mg/dL (74-106); SODIUM SERUM 137 mmol/L (136-145); UREA NITROGEN, BLOOD 62 mg/dL (7-18)
[2023-09-26] MEDS: PANTOPRAZOLE 40 MG TABLET.DR PO SCH (08:34)
[2023-09-26] MEDS: LACTULOSE 10 G/15 ML UDC (PYXIS) PO SCH ×3 (09:00→16:49)
[2023-09-26] MEDS: SPIRONOLACTONE 25 MG TABLET PO SCH (09:34)
[2023-09-26] MEDS: DOCUSATE SODIUM 100 MG CAPSULE PO SCH (09:34)
[2023-09-26] MEDS: CALCIUM CARB 250MG /VITAMIN D 1 UDTAB PO SCH (09:34)
[2023-09-26] MEDS: MULTIVIT W/MINERALS 1 TAB TABLET PO SCH (09:34)
[2023-09-26] MEDS: FUROSEMIDE 40 MG TABLET PO SCH ×2 (09:34→16:49)
[2023-09-26] MEDS: FERROUS SULFATE (325 MG) 325 MG/TAB TABLET PO SCH ×2 (09:34→16:49)
[2023-09-26] MEDS: CHOLECALCIFEROL 1,000 UNIT TABLET (VIT D3) PO SCH (09:34)
[2023-09-26] MEDS: BRIMONIDINE TARTRATE OPHT SOLN 5 ML BOTTLE EACHEYE SCH ×2 (09:42→16:52)
[2023-09-26] MEDS: TIMOLOL MAL/DORZOLAM HCL OPHTH 10 ML BOTTLE EACHEYE SCH ×2 (09:42→16:52)
[2023-09-26] MEDS: PROSOURCE / PROSTAT (PYXIS) 30 ML UDC GT SCH ×3 (10:26→16:57)
[2023-09-26 11:40] LABS: EOSINOPHILS % (MANUAL) 7 % (0-4); LYMPHOCYTES % (MANUAL) 9 % (16-48); MONOCYTES % (MANUAL) 14 % (0-11.0); NEUTROPHILS % (MANUAL) 70 (42-76); PLATELET ESTIMATE DECREASED
[2023-09-26] MEDS ORDERED: PROSTAT (PYXIS) 30 ML UDC PO SCH (13:00)
[2023-09-26 16:00] VITALS: BP 139/51; TEMP 98.1; O2SAT 100
[2023-09-26] MEDS: CLOPIDOGREL BISULFATE 75 MG TABLET PO SCH (18:23)
[2023-09-26 20:00] VITALS: BP 136/44; TEMP 98.4; O2SAT 99
[2023-09-26] MEDS: SIMVASTATIN 10 MG TABLET PO SCH (22:19)
[2023-09-26] MEDS: CEFEPIME 1 GM in IV D5W 50 ML IV SCH (22:19)
[2023-09-26] MEDS: TAMSULOSIN 0.4 MG CAP.SR.24H PO SCH (22:19)
[2023-09-26] MEDS: SENNOSIDES 8.6 MG TABLET PO SCH (22:19)
[2023-09-26] MEDS: VANCOMYCIN HCL 0.75 GM in IV D5W 250 ML IV SCH (23:00)
[2023-09-27] MEDS: BLOOD SUGAR DIAGNOSTIC 1 EACH STRIP IN SCH ×2 (07:30→11:18)
[2023-09-27 08:01] LABS: CALCIUM, SERUM 7.4 mg/dL (8.5-10.1); CARBON DIOXIDE 16 mmol/L (21-32); CHLORIDE 113 mmol/L (98-107); CREATININE 2.1 mg/dL (0.6-1.3); GLUCOSE 124 mg/dL (74-106); POTASSIUM 5.4 mmol/L (3.5-5.1); SODIUM SERUM 137 mmol/L (136-145); UREA NITROGEN, BLOOD 61 mg/dL (7-18)
[2023-09-27] MEDS: CHOLECALCIFEROL 1,000 UNIT TABLET (VIT D3) PO SCH (08:15)
[2023-09-27] MEDS: CALCIUM CARB 250MG /VITAMIN D 1 UDTAB PO SCH (08:15)
[2023-09-27] MEDS: LACTULOSE 10 G/15 ML UDC (PYXIS) PO SCH (08:15)
[2023-09-27] MEDS: MULTIVIT W/MINERALS 1 TAB TABLET PO SCH (08:15)
[2023-09-27] MEDS: PANTOPRAZOLE 40 MG TABLET.DR PO SCH (08:15)
[2023-09-27] MEDS: FUROSEMIDE 40 MG TABLET PO SCH (08:16)
[2023-09-27] MEDS: DOCUSATE SODIUM 100 MG CAPSULE PO SCH (08:16)
[2023-09-27] MEDS: FERROUS SULFATE (325 MG) 325 MG/TAB TABLET PO SCH (08:16)
[2023-09-27] MEDS: SPIRONOLACTONE 25 MG TABLET PO SCH (08:16)
[2023-09-27] MEDS: CLOPIDOGREL BISULFATE 75 MG TABLET PO SCH (08:16)
[2023-09-27] MEDS: PROSOURCE / PROSTAT (PYXIS) 30 ML UDC GT SCH ×3 (08:18→12:21)
[2023-09-27] MEDS: BRIMONIDINE TARTRATE OPHT SOLN 5 ML BOTTLE EACHEYE SCH (08:19)
[2023-09-27] MEDS: TIMOLOL MAL/DORZOLAM HCL OPHTH 10 ML BOTTLE EACHEYE SCH (08:19)
[2023-09-27 08:33] VITALS: BP 125/42; TEMP 98; O2SAT 100
[2023-09-27] MEDS ORDERED: CEFE1FRO IV (08:33)
[2023-09-27] MEDS ORDERED: PROSOURCE / PROSTAT (PYXIS) 30 ML UDC GT SCH (09:00)
[2023-09-27] MEDS: INSULIN REGULAR, HUMAN 100 UNIT/ML 3 ML VIAL SQ PRN ×2 (11:18→11:23)
[2023-09-27] MEDS ORDERED: VANCOMYCIN HCL 0.75 GM in IV D5W 250 ML IV SCH (14:00)
== END 2023-09-27 13:30 | DRG 727 ==
LOC: ER 19:47 → TRANSITION 09-24 00:38 → MED 09-24 08:31
PROVIDERS: ADMIT Nurse Practitioner Family; ATTEND Nurse Practitioner Acute Care
PROC: 0V953ZZ Drainage of Scrotum, Percutaneous Approach (ICD-10-PCS; principal; 2023-09-24)
DX: N49.2 Inflammatory disorders of scrotum (principal); E43 Unspecified severe protein-calorie malnutrition; N17.0 Acute kidney failure with tubular necrosis; R18.8 Other ascites; N18.30 Chronic kidney disease, stage 3 unspecified; E11.22 Type 2 diabetes mellitus with diabetic chronic kidney disease; I12.9 Hypertensive chronic kidney disease with stage 1 through stage 4 chronic kidney disease, or unspecified chronic kidney disease; D64.9 Anemia, unspecified; E66.9 Obesity, unspecified; E78.5 Hyperlipidemia, unspecified; E87.5 Hyperkalemia; E88.09 Other disorders of plasma-protein metabolism, not elsewhere classified; M10.9 Gout, unspecified; K74.60 Unspecified cirrhosis of liver; N40.0 Benign prostatic hyperplasia without lower urinary tract symptoms; Z79.84 Long term (current) use of oral hypoglycemic drugs; Z88.0 Allergy status to penicillin; R16.1 Splenomegaly, not elsewhere classified; Z68.38 Body mass index [BMI] 38.0-38.9, adult; Z79.4 Long term (current) use of insulin
CPT/HCPCS: 36415; 71045-TC; 76870-TC; 80048-TC; 80061-TC; 80076-TC; 80202-TC; 82962-TC; 83605-TC; 83735-TC; 84100-TC; 84484-TC; 85025-TC; 85730-TC; 87040-TC; 97112-TC; 97116-TC; 97530-TC; A4223; A6253; A6403; G0378; J0692; J1815; J2270; J2405; J3370; J3490; J7030; J7050; J7060; Q9967

== ENCOUNTER 2023-11-28 18:03 | Inpatient (IN) | payer MEDICARE, OTHER ==
[~2023-11-28] VITALS: Ht 182.9 cm; Wt 100.2 kg
[~2023-11-28 18:03] MED LIST changes: -BISA10SU11 RC; +CALC1TAB30 PO; +CEFE1FRO IV; +CLOP75TA15 PO; -ERGO500093 PO; +NEOM1OIN15 TP; +NETA2.5D3 EACHEYE; -POVI100M; +POVI1MED TP; +SPIR25TA6 PO; -SULF1TAB48 PO
[2023-11-28 18:47] LABS: BASOPHILS % (AUTO) 0.5 % (0.0-2.0); EOSINOPHILS # (AUTO) 0.3 K/uL (0.0-0.7); EOSINOPHILS % (AUTO) 4.6 % (0.0-6.0); HEMATOCRIT 24 % (39-51); HEMOGLOBIN 7.7 g/dL (13.5-17.5); LYMPHOCYTES # (AUTO) 0.5 K/uL (0.8-4.8); LYMPHOCYTES % (AUTO) 8.5 % (20.0-44.0); MEAN CORPUSCULAR HEMOGLOBIN 31 PG (26.0-33.0); MEAN CORPUSCULAR HGB CONC 32 g/dl (31.0-36.0); MEAN CORPUSCULAR VOLUME 95 fL (80-96); MONOCYTES # (AUTO) 0.6 K/uL (0.1-1.30); MONOCYTES % (AUTO) 9.7 % (2.0-12.0); NEUTROPHILS # (AUTO) 4.8 K/uL (1.8-8.9); NEUTROPHILS % (AUTO) 76.7 % (43.0-81.0); PLATELET COUNT (AUTO) 126 K/uL (150-450); RED BLOOD CELL COUNT(AUTO) 2.53 MIL/uL (4.5-6.0); RED CELL DISTRIBUTION WIDTH 17.1 % (11.5-15.0); WHITE BLOOD COUNT (AUTO) 6.3 K/uL (4.3-11.0)
[2023-11-28 18:56] LABS: CALCIUM, SERUM 7.8 mg/dL (8.5-10.1); CARBON DIOXIDE 17 mmol/L (21-32); CHLORIDE 118 mmol/L (98-107); CREATININE 2.9 mg/dL (0.6-1.3); GLUCOSE 115 mg/dL (74-106); SODIUM SERUM 141 mmol/L (136-145)
[2023-11-28] MEDS ORDERED: ASCO500T10 PO (19:08)
[2023-11-28] MEDS ORDERED: GLIM1TAB18 PO (19:08)
[2023-11-28] MEDS ORDERED: AMIN887L7 PO (19:08)
[2023-11-28] MEDS ORDERED: LOPE2CAP PO (19:08)
[2023-11-28] MEDS ORDERED: GABA-532 PO (19:08)
[2023-11-28] MEDS ORDERED: CALC-1118 PO (19:08)
[2023-11-28] MEDS ORDERED: GLUC1KIT IM (19:08)
[2023-11-28] MEDS ORDERED: ESCI5TAB PO (19:08)
[2023-11-28 19:11] LABS: ALANINE AMINOTRANSFERASE 17 U/L (12-78); ALBUMIN 1.7 g/dL (3.4-5.0); ALKALINE PHOSPHATASE 143 U/L (46-116); ASPARTATE AMINOTRANSFERASE 17 U/L (15-37); BILIRUBIN,DIRECT 0.1 mg/dL (0.0-0.2); BILIRUBIN,TOTAL 0.2 mg/dL (0.2-1.0); LIPASE 99 U/L (16-77); NT-PRO BNP 5136 pg/mL (0-125); TOTAL PROTEIN, SERUM 6.1 g/dL (6.4-8.2)
[2023-11-28 19:12] LABS: UREA NITROGEN, BLOOD 100 mg/dL (7-18)
[2023-11-28] MEDS ORDERED: FUROSEMIDE 20 MG/2 ML VIAL ONE (19:30)
[2023-11-28] MEDS ORDERED: INSULIN REGULAR, HUMAN 100 UNIT/ML 10 ML VIAL ONE (19:30)
[2023-11-28] MEDS ORDERED: SODIUM BICARBONATE SYR 50 MEQ/50 ML DISP.SYRIN ONE (19:30)
[2023-11-28] MEDS ORDERED: DEXTROSE 50%-WATER 50 ML DISP.SYRIN ONE ×2 (19:30→19:51)
[2023-11-28] MEDS: INSULIN REGULAR, HUMAN 100 UNIT/ML 10 ML VIAL IV ONE (19:37)
[2023-11-28] MEDS: DEXTROSE 50%-WATER 50 ML DISP.SYRIN IV ONE ×2 (19:37→19:55)
[2023-11-28] MEDS: SODIUM BICARBONATE SYR 50 MEQ/50 ML DISP.SYRIN IV ONE (19:40)
[2023-11-28] MEDS: FUROSEMIDE 40 MG/4 ML VIAL IV ONE (19:45)
[2023-11-28] MEDS ORDERED: ALBUTEROL FS 2.5 MG/3 ML VIAL.NEB ONE (19:59)
[2023-11-28 20:02] VITALS: O2SAT 100
[2023-11-28] MEDS: ALBUTEROL FS 2.5 MG/3 ML VIAL.NEB NEB ONE (20:02)
[2023-11-28] MEDS ORDERED: SODIUM POLYSTYRENE SULFONATE 15 G/60 ML BOTTLE ONE (20:09)
[2023-11-28 20:12] VITALS: O2SAT 100
[2023-11-28] MEDS: SODIUM POLYSTYRENE SULFONATE 15 G/60 ML BOTTLE PO ONE (20:33)
[2023-11-28] MEDS ORDERED: [UNRECOGNIZED DRUG - OTHER] XX SCH (21:30)
[2023-11-28] MEDS ORDERED: LOPERAMIDE HCL (2 MG CAP) 2 MG CAPSULE PO PRN (21:30)
[2023-11-28] MEDS ORDERED: HYDROMORPHONE INJ 2 MG/ML DISP.SYRIN IV PRN (21:30)
[2023-11-28] MEDS ORDERED: MAGNESIUM HYDROXIDE 30 ML UDC PO PRN (21:30)
[2023-11-28] MEDS ORDERED: ONDANSETRON HCL/PF 4 MG/2 ML VIAL IVP PRN (21:30)
[2023-11-28] MEDS ORDERED: Z GUARD REMEDY 4 OZ OINT TP PRN (21:30)
[2023-11-28] MEDS ORDERED: MAG HYDROX/AL HYDROX/SIMETH 30 ML UDC PO PRN (21:30)
[2023-11-28] MEDS ORDERED: MORPHINE SULFATE INJ 2 MG/ML DISP.SYRIN IV PRN (21:30)
[2023-11-28] MEDS: BLOOD SUGAR DIAGNOSTIC 1 EACH STRIP IN SCH (22:00)
[2023-11-28] MEDS: SENNOSIDES 8.6 MG TABLET PO SCH (22:00)
[2023-11-28] MEDS: TAMSULOSIN 0.4 MG CAP.SR.24H PO SCH (22:00)
[2023-11-28] MEDS: SIMVASTATIN 10 MG TABLET PO SCH (22:00)
[2023-11-28] MEDS ORDERED: DEXTROSE 50%-WATER 50 ML DISP.SYRIN IV PRN (22:00)
[2023-11-28] MEDS: GABAPENTIN 100 MG CAPSULE PO SCH (22:00)
[2023-11-28] MEDS: ACETAMINOPHEN 325 MG TABLET PO PRN (22:24)
[2023-11-28] MEDS ORDERED: SIMVASTATIN 10 MG TABLET ONE (23:41)
[2023-11-28] MEDS ORDERED: SENNOSIDES 8.6 MG TABLET ONE (23:41)
[2023-11-28] MEDS ORDERED: GABAPENTIN 100 MG CAPSULE ONE (23:41)
[2023-11-28] MEDS ORDERED: TAMSULOSIN 0.4 MG CAP.SR.24H ONE (23:41)
[2023-11-29] VITALS (25 sets, daily range): BP systolic 113–157; BP diastolic 32–97; TEMP 98–98.3; O2SAT 98–100
[2023-11-29 00:07] LABS: CALCIUM, SERUM 7.7 mg/dL (8.5-10.1); CARBON DIOXIDE 15 mmol/L (21-32); CHLORIDE 119 mmol/L (98-107); CREATININE 2.9 mg/dL (0.6-1.3); GLUCOSE 84 mg/dL (74-106); SODIUM SERUM 142 mmol/L (136-145)
[2023-11-29 00:13] LABS: POTASSIUM 6.4 mmol/L (3.5-5.1); UREA NITROGEN, BLOOD 100 mg/dL (7-18)
[2023-11-29] MEDS: IV NS 0.9% 1,000 ML IV PRN (01:33)
[2023-11-29] MEDS: SODIUM BICARBONATE SYR 50 MEQ/50 ML DISP.SYRIN IV ONE (03:30)
[2023-11-29] MEDS: IV 1/2NS 1000 ML 1,000 ML IV ONE (03:30)
[2023-11-29] MEDS ORDERED: SODIUM BICARBONATE SYR 50 MEQ/50 ML DISP.SYRIN ONE (04:13)
[2023-11-29] MEDS ORDERED: CEFEPIME 1 GM VIAL ONE (06:31)
[2023-11-29 06:34] LABS: BASOPHILS % (AUTO) 0.3 % (0.0-2.0); EOSINOPHILS # (AUTO) 0.3 K/uL (0.0-0.7); EOSINOPHILS % (AUTO) 5.6 % (0.0-6.0); HEMATOCRIT 24 % (39-51); HEMOGLOBIN 7.9 g/dL (13.5-17.5); LYMPHOCYTES # (AUTO) 0.5 K/uL (0.8-4.8); LYMPHOCYTES % (AUTO) 8.5 % (20.0-44.0); MEAN CORPUSCULAR HEMOGLOBIN 31 PG (26.0-33.0); MEAN CORPUSCULAR HGB CONC 33 g/dl (31.0-36.0); MEAN CORPUSCULAR VOLUME 94 fL (80-96); MONOCYTES # (AUTO) 0.5 K/uL (0.1-1.30); MONOCYTES % (AUTO) 8.7 % (2.0-12.0); NEUTROPHILS # (AUTO) 4.7 K/uL (1.8-8.9); NEUTROPHILS % (AUTO) 76.9 % (43.0-81.0); PLATELET COUNT (AUTO) 129 K/uL (150-450); RED BLOOD CELL COUNT(AUTO) 2.58 MIL/uL (4.5-6.0); WHITE BLOOD COUNT (AUTO) 6.1 K/uL (4.3-11.0)
[2023-11-29] MEDS: CEFEPIME HCL 2 GM in IV D5W 100 ML IV SCH (06:41)
[2023-11-29] MEDS: Sodium Bicarbonate 100 MEQ in IV D5/0.45 NACL 1,000 ML IV SCH (06:41)
[2023-11-29 07:35] LABS: CALCIUM, SERUM 7.9 mg/dL (8.5-10.1); CARBON DIOXIDE 16 mmol/L (21-32); CHLORIDE 119 mmol/L (98-107); CREATININE 2.7 mg/dL (0.6-1.3); GLUCOSE 76 mg/dL (74-106); MAGNESIUM 3.3 mg/dL (1.8-2.4); PHOSPHORUS 5.5 mg/dL (2.5-4.9); SODIUM SERUM 144 mmol/L (136-145)
[2023-11-29 07:39] LABS: POTASSIUM 6.2 mmol/L (3.5-5.1); UREA NITROGEN, BLOOD 102 mg/dL (7-18)
[2023-11-29] MEDS: ESCITALOPRAM OXALATE (10 MG) 10 MG TABLET PO SCH (09:45)
[2023-11-29] MEDS: DOCUSATE SODIUM 100 MG CAPSULE PO SCH (09:46)
[2023-11-29] MEDS: CALCIUM CARB 600MG /VIT D 1 EACH TABLET PO SCH (09:46)
[2023-11-29] MEDS: MULTIVITAMINS,THERAGRAN 1 UDTAB TABLET PO SCH (09:46)
[2023-11-29] MEDS: CHOLECALCIFEROL 1,000 UNIT TABLET (VIT D3) PO SCH (09:46)
[2023-11-29] MEDS: LACTULOSE 10 G/15 ML UDC (PYXIS) PO SCH (09:46)
[2023-11-29] MEDS: FERROUS SULFATE (325 MG) 325 MG/TAB TABLET PO SCH (09:46)
[2023-11-29] MEDS: PANTOPRAZOLE 40 MG VIAL IV SCH (09:47)
[2023-11-29] MEDS: TIMOLOL MAL/DORZOLAM HCL OPHTH 10 ML BOTTLE EACHEYE SCH (09:47)
[2023-11-29] MEDS: ASCORBIC ACID 500 MG TABLET PO SCH (09:47)
[2023-11-29] MEDS: BRIMONIDINE TARTRATE OPHT SOLN 5 ML BOTTLE OP SCH (09:48)
[2023-11-29] MEDS: PROSOURCE / PROSTAT (PYXIS) 30 ML UDC PO SCH (09:52)
[2023-11-29] MEDS ORDERED: SPIRONOLACTONE 25 MG TABLET PO SCH (10:00)
[2023-11-29] MEDS: Sodium Bicarbonate 75 MEQ in IV 1/2NS 1000 ML 1,000 ML IV SCH (10:25)
[2023-11-29 11:23] LABS: INR 1.05 (0.91-1.10); PROTHROMBIN TIME 11.1 SECS (9.2-11.1)
[2023-11-29 14:13] LABS: APPEARANCE,URINE CLEAR (CLEAR); BILIRUBIN,URINE NEGATIVE (NEGATIVE); BLOOD, URINE NEGATIVE Ery/uL (NEGATIVE); COLOR,URINE YELLOW (YELLOW); EOSINOPHIL,URINE None Seen; KETONES,URINE NEGATIVE (NEGATIVE); LEUKOCYTE ESTERASE ,URINE NEGATIVE (NEGATIVE); NITRITE, URINE NEGATIVE (NEGATIVE); PH,URINE 5.5 (5.0-8.0); PROTEIN,URINE NEGATIVE (NEGATIVE); UGLUCOSE NEGATIVE (NEGATIVE); UROBILINOGEN,URINE 0.2 EU/dL (0.2)
[2023-11-29 14:24] LABS: URINE TOTAL PROTEIN 17.6 mg/dL (0-11.9)
[2023-11-29] MEDS ORDERED: ALBUMIN 25% 12.5 GM/50 ML BOTTLE IV ONE (14:30)
[2023-11-29] MEDS: ALBUMIN 25% 25 GM in PREMIX 1 EA IV ONE (14:38)
[2023-11-29 14:56] LABS: CALCIUM, SERUM 7.8 mg/dL (8.5-10.1); CARBON DIOXIDE 16 mmol/L (21-32); CHLORIDE 118 mmol/L (98-107); CREATININE 2.6 mg/dL (0.6-1.3); GLUCOSE 110 mg/dL (74-106); SODIUM SERUM 143 mmol/L (136-145)
[2023-11-29 15:02] LABS: UREA NITROGEN, BLOOD 98 mg/dL (7-18)
[2023-11-29 20:01] LABS: APPEARANCE,SPUN,BODY FLUID CLEAR (CLEAR); TOTAL VOLUME,BODY FLUID 1100 mL; WBC, BODY FLUID 308 /cu. mm. (0-200)
[2023-11-29 22:54] LABS: MACROPHAGES, BODY FLUID 25; POLYNUCLEAR, BODY FLUID 14 % (0-25)
[2023-11-30] VITALS (37 sets, daily range): BP systolic 101–157; BP diastolic 30–78; TEMP 97.3–99.1; O2SAT 95–100
[2023-11-30 04:25] LABS: HEMATOCRIT 22 % (39-51); HEMOGLOBIN 7.2 g/dL (13.5-17.5); MEAN CORPUSCULAR HEMOGLOBIN 31 PG (26.0-33.0); PLATELET COUNT (AUTO) 116 K/uL (150-450); RED BLOOD CELL COUNT(AUTO) 2.34 MIL/uL (4.5-6.0); WHITE BLOOD COUNT (AUTO) 5.8 K/uL (4.3-11.0)
[2023-11-30 05:05] LABS: BASOPHILS % (AUTO) 0.3 % (0.0-2.0); EOSINOPHILS # (AUTO) 0.2 K/uL (0.0-0.7); LYMPHOCYTES # (AUTO) 0.5 K/uL (0.8-4.8); LYMPHOCYTES % (AUTO) 8.8 % (20.0-44.0); MEAN CORPUSCULAR HGB CONC 33 g/dl (31.0-36.0); MEAN CORPUSCULAR VOLUME 94 fL (80-96); MONOCYTES # (AUTO) 0.4 K/uL (0.1-1.30); MONOCYTES % (AUTO) 6.6 % (2.0-12.0); NEUTROPHILS # (AUTO) 4.6 K/uL (1.8-8.9); NEUTROPHILS % (AUTO) 80.3 % (43.0-81.0)
[2023-11-30 07:26] LABS: SERUM AMMONIA 51 umol/L (11-32)
[2023-11-30 07:27] LABS: ALANINE AMINOTRANSFERASE 14 U/L (12-78); ALBUMIN 1.8 g/dL (3.4-5.0); ALKALINE PHOSPHATASE 96 U/L (46-116); ASPARTATE AMINOTRANSFERASE 14 U/L (15-37); BILIRUBIN,TOTAL 0.2 mg/dL (0.2-1.0); CALCIUM, SERUM 7.3 mg/dL (8.5-10.1); CARBON DIOXIDE 20 mmol/L (21-32); CHLORIDE 118 mmol/L (98-107); CREATININE 2.5 mg/dL (0.6-1.3); GLUCOSE 84 mg/dL (74-106); MAGNESIUM 3.2 mg/dL (1.8-2.4); PHOSPHORUS 4.5 mg/dL (2.5-4.9); SODIUM SERUM 145 mmol/L (136-145); TOTAL PROTEIN, SERUM 5.7 g/dL (6.4-8.2)
[2023-11-30 07:53] LABS: CREATINE KINASE, TOTAL 25 U/L (39-308)
[2023-11-30 07:54] LABS: POTASSIUM 6.2 mmol/L (3.5-5.1)
[2023-11-30 07:55] LABS: UREA NITROGEN, BLOOD 92 mg/dL (7-18)
[2023-11-30] MEDS: SODIUM POLYSTYRENE SULFONATE 15 G/60 ML BOTTLE PO ONE (09:07)
[2023-11-30] MEDS: FUROSEMIDE 20 MG/2 ML VIAL IV SCH (09:09)
[2023-11-30] MEDS: INSULIN REGULAR, HUMAN 100 UNIT/ML 3 ML VIAL SQ PRN (12:04)
[2023-11-30 13:30] LABS: CHLORIDE,URINE RANDOM 56 mmol/L (55-125); POTASSIUM RNDM,URINE 21 mmol/L (25-125); URINE SODIUM, RANDOM 56 mmol/l (40-220)
[2023-11-30 13:37] LABS: APPEARANCE,URINE CLEAR (CLEAR); BILIRUBIN,URINE NEGATIVE (NEGATIVE); BLOOD, URINE NEGATIVE Ery/uL (NEGATIVE); COLOR,URINE YELLOW (YELLOW); KETONES,URINE NEGATIVE (NEGATIVE); LEUKOCYTE ESTERASE ,URINE NEGATIVE (NEGATIVE); NITRITE, URINE NEGATIVE (NEGATIVE); PROTEIN,URINE NEGATIVE (NEGATIVE); UGLUCOSE NEGATIVE (NEGATIVE); UROBILINOGEN,URINE 0.2 EU/dL (0.2)
[2023-11-30 13:38] LABS: CALCIUM, SERUM 7.4 mg/dL (8.5-10.1); CARBON DIOXIDE 19 mmol/L (21-32); CHLORIDE 116 mmol/L (98-107); CREATININE 2.5 mg/dL (0.6-1.3); GLUCOSE 215 mg/dL (74-106); POTASSIUM 5.7 mmol/L (3.5-5.1); SODIUM SERUM 143 mmol/L (136-145)
[2023-11-30 13:42] LABS: UREA NITROGEN, BLOOD 88 mg/dL (7-18)
[2023-11-30 15:39] LABS: EOSINOPHIL,URINE None Seen
[2023-11-30] MEDS: SIMVASTATIN 20 MG TABLET ONE (22:35)
[2023-12-01] VITALS: BP 120/54; TEMP 99; O2SAT 97
[2023-12-01 04:00] VITALS: BP 123/39; TEMP 98.6; O2SAT 97
[2023-12-01 07:08] LABS: PTH, INTACT 95 pg/mL (15-65)
[2023-12-01 07:47] LABS: BASOPHILS % (AUTO) 0.3 % (0.0-2.0); EOSINOPHILS # (AUTO) 0.2 K/uL (0.0-0.7); EOSINOPHILS % (AUTO) 2.8 % (0.0-6.0); HEMATOCRIT 22 % (39-51); HEMOGLOBIN 7.3 g/dL (13.5-17.5); LYMPHOCYTES # (AUTO) 0.6 K/uL (0.8-4.8); LYMPHOCYTES % (AUTO) 9.7 % (20.0-44.0); MEAN CORPUSCULAR HEMOGLOBIN 31 PG (26.0-33.0); MEAN CORPUSCULAR HGB CONC 33 g/dl (31.0-36.0); MEAN CORPUSCULAR VOLUME 93 fL (80-96); MONOCYTES # (AUTO) 0.5 K/uL (0.1-1.30); MONOCYTES % (AUTO) 7.4 % (2.0-12.0); NEUTROPHILS # (AUTO) 5.1 K/uL (1.8-8.9); NEUTROPHILS % (AUTO) 79.8 % (43.0-81.0); PLATELET COUNT (AUTO) 102 K/uL (150-450); RED BLOOD CELL COUNT(AUTO) 2.39 MIL/uL (4.5-6.0); RED CELL DISTRIBUTION WIDTH 16.4 % (11.5-15.0); WHITE BLOOD COUNT (AUTO) 6.4 K/uL (4.3-11.0)
[2023-12-01 08:00] VITALS: BP 130/45; TEMP 97.9; O2SAT 98
[2023-12-01 08:06] LABS: CALCIUM, SERUM 6.8 mg/dL (8.5-10.1); CARBON DIOXIDE 20 mmol/L (21-32); CHLORIDE 117 mmol/L (98-107); CREATININE 2.6 mg/dL (0.6-1.3); GLUCOSE 103 mg/dL (74-106); POTASSIUM 4.9 mmol/L (3.5-5.1); SODIUM SERUM 147 mmol/L (136-145)
[2023-12-01 08:07] LABS: UREA NITROGEN, BLOOD 88 mg/dL (7-18)
[2023-12-01 08:13] LABS: MAGNESIUM 2.7 mg/dL (1.8-2.4); PHOSPHORUS 3.9 mg/dL (2.5-4.9)
[2023-12-01 12:00] VITALS: BP 118/38; TEMP 97.8; O2SAT 97
[2023-12-01 13:14] LABS: ABG BASE EXCESS -5.9 mmol/L; ABG OXYGEN SATURATION 95.3 % (92.0-98.5); ABG PCO2 30.7 mmHg (35.0-45.0); ABG PH 7.394 (7.350-7.450); ABG PO2 76.6 mmHg (75.0-100.0); ABG TOTAL HEMOGLOBIN 7.8 G/dL (13.5-18.0); COHb 0.3 % (0.5-1.5); MetHb 0.4 % (0.0-1.5); O2Hb 94.6 % (94.0-97.0); SITE, ABG Right Radial; VENT MODE, BG 21%
[2023-12-01 16:33] VITALS: BP 123/39; TEMP 97.1; O2SAT 99
[2023-12-01 20:00] VITALS: BP 105/51; TEMP 98.8; O2SAT 99
[2023-12-01] MEDS: SIMVASTATIN 10 MG TABLET ONE (22:47)
[2023-12-02] VITALS: BP 103/53; TEMP 98.5; O2SAT 99
[2023-12-02 04:00] VITALS: BP 108/51; TEMP 98.6; O2SAT 98
[2023-12-02 07:32] LABS: BASOPHILS % (AUTO) 0.3 % (0.0-2.0); EOSINOPHILS # (AUTO) 0.3 K/uL (0.0-0.7); EOSINOPHILS % (AUTO) 3.9 % (0.0-6.0); HEMATOCRIT 22 % (39-51); HEMOGLOBIN 7.4 g/dL (13.5-17.5); LYMPHOCYTES # (AUTO) 0.6 K/uL (0.8-4.8); LYMPHOCYTES % (AUTO) 9.2 % (20.0-44.0); MEAN CORPUSCULAR HEMOGLOBIN 31 PG (26.0-33.0); MEAN CORPUSCULAR HGB CONC 33 g/dl (31.0-36.0); MEAN CORPUSCULAR VOLUME 92 fL (80-96); MONOCYTES # (AUTO) 0.5 K/uL (0.1-1.30); NEUTROPHILS # (AUTO) 5.2 K/uL (1.8-8.9); NEUTROPHILS % (AUTO) 79.6 % (43.0-81.0); PLATELET COUNT (AUTO) 94 K/uL (150-450); RED BLOOD CELL COUNT(AUTO) 2.41 MIL/uL (4.5-6.0); RED CELL DISTRIBUTION WIDTH 16.1 % (11.5-15.0); WHITE BLOOD COUNT (AUTO) 6.5 K/uL (4.3-11.0)
[2023-12-02 08:00] VITALS: BP 123/57; TEMP 98.4; O2SAT 98
[2023-12-02] MEDS: PANTOPRAZOLE 40 MG/PACK PACK PO SCH (08:08)
[2023-12-02 08:18] LABS: CALCIUM, SERUM 6.8 mg/dL (8.5-10.1); CARBON DIOXIDE 20 mmol/L (21-32); CHLORIDE 113 mmol/L (98-107); CREATININE 2.5 mg/dL (0.6-1.3); GLUCOSE 119 mg/dL (74-106); POTASSIUM 4.6 mmol/L (3.5-5.1); SODIUM SERUM 143 mmol/L (136-145)
[2023-12-02 08:19] LABS: MAGNESIUM 2.7 mg/dL (1.8-2.4); PHOSPHORUS 4.1 mg/dL (2.5-4.9); UREA NITROGEN, BLOOD 85 mg/dL (7-18)
[2023-12-02 11:02] LABS: ANISOCYTOSIS 1+; BASOPHILS % (MANUAL) 0 % (0.0-2.0); EOSINOPHILS % (MANUAL) 3 % (0-4); LYMPHOCYTES % (MANUAL) 9 % (16-48); MONOCYTES % (MANUAL) 5 % (0-11.0); NEUTROPHILS % (MANUAL) 83 (42-76); OVALOCYTES 1+; PLATELET ESTIMATE DECREASED
[2023-12-02 12:00] VITALS: BP 121/42; TEMP 98.6; O2SAT 98
[2023-12-02 16:00] VITALS: BP 133/45; TEMP 98.6; O2SAT 98
[2023-12-02 16:00] LABS: SERUM AMMONIA 50 umol/L (11-32)
[2023-12-02 20:00] VITALS: BP 125/50; TEMP 98.8; O2SAT 98
[2023-12-03] VITALS: BP 116/50; TEMP 98.8; O2SAT 98
[2023-12-03 04:00] VITALS: BP 116/47; TEMP 98.4; O2SAT 97
[2023-12-03 07:17] LABS: BASOPHILS % (AUTO) 0.2 % (0.0-2.0); EOSINOPHILS # (AUTO) 0.3 K/uL (0.0-0.7); HEMATOCRIT 21 % (39-51); HEMOGLOBIN 7.2 g/dL (13.5-17.5); LYMPHOCYTES # (AUTO) 0.6 K/uL (0.8-4.8); LYMPHOCYTES % (AUTO) 9.9 % (20.0-44.0); MEAN CORPUSCULAR HEMOGLOBIN 31 PG (26.0-33.0); MEAN CORPUSCULAR HGB CONC 34 g/dl (31.0-36.0); MEAN CORPUSCULAR VOLUME 92 fL (80-96); MONOCYTES # (AUTO) 0.4 K/uL (0.1-1.30); MONOCYTES % (AUTO) 6.5 % (2.0-12.0); NEUTROPHILS % (AUTO) 79.4 % (43.0-81.0); PLATELET COUNT (AUTO) 87 K/uL (150-450); RED BLOOD CELL COUNT(AUTO) 2.32 MIL/uL (4.5-6.0); RED CELL DISTRIBUTION WIDTH 15.9 % (11.5-15.0); WHITE BLOOD COUNT (AUTO) 6.3 K/uL (4.3-11.0)
[2023-12-03 07:38] LABS: CALCIUM, SERUM 7.1 mg/dL (8.5-10.1); CARBON DIOXIDE 24 mmol/L (21-32); CHLORIDE 111 mmol/L (98-107); CREATININE 2.5 mg/dL (0.6-1.3); GLUCOSE 119 mg/dL (74-106); MAGNESIUM 2.8 mg/dL (1.8-2.4); PHOSPHORUS 3.9 mg/dL (2.5-4.9); POTASSIUM 4.6 mmol/L (3.5-5.1); SODIUM SERUM 143 mmol/L (136-145); UREA NITROGEN, BLOOD 78 mg/dL (7-18)
[2023-12-03 08:23] LABS: ANISOCYTOSIS 1+; BAND % (MANUAL) 4 % (0.0-5.0); EOSINOPHILS % (MANUAL) 5 % (0-4); LYMPHOCYTES % (MANUAL) 9 % (16-48); NEUTROPHILS % (MANUAL) 82 (42-76); PLATELET ESTIMATE DECREASED
[2023-12-03 09:09] LABS: *SPE A/G RATIO 0.7 (0.7-1.7); *SPE ALBUMIN 2.1 g/dL (2.9-4.4); *SPE ALPHA-1-GLOBULIN 0.3 g/dL (0.0-0.4); *SPE ALPHA-2-GLOBULIN 0.7 g/dL (0.4-1.0); *SPE BETA GLOBULIN 0.6 g/dL (0.7-1.3); *SPE GLOBULIN, TOTAL 2.9 g/dL (2.2-3.9); *SPE M-SPIKE Not Observed g/dL (Not Observed); *SPEGAMMA GLOBULIN 1.3 g/dL (0.4-1.8)
[2023-12-03 09:22] VITALS: BP 106/45; TEMP 98.6; O2SAT 98
[2023-12-03 12:31] VITALS: BP 112/40; TEMP 98.6; O2SAT 98
[2023-12-03 16:55] VITALS: BP 116/47; TEMP 98.4; O2SAT 97
[2023-12-03 20:00] VITALS: BP 141/40; TEMP 98.5; O2SAT 97
[2023-12-04 00:39] VITALS: BP 141/40; TEMP 98.5; O2SAT 97
[2023-12-04 06:17] VITALS: BP 123/44; TEMP 98.5; O2SAT 96
[2023-12-04 07:30] LABS: BASOPHILS % (AUTO) 0.3 % (0.0-2.0); EOSINOPHILS # (AUTO) 0.2 K/uL (0.0-0.7); HEMATOCRIT 21 % (39-51); LYMPHOCYTES # (AUTO) 0.6 K/uL (0.8-4.8); LYMPHOCYTES % (AUTO) 10.4 % (20.0-44.0); MEAN CORPUSCULAR HEMOGLOBIN 31 PG (26.0-33.0); MEAN CORPUSCULAR HGB CONC 33 g/dl (31.0-36.0); MEAN CORPUSCULAR VOLUME 92 fL (80-96); MONOCYTES # (AUTO) 0.4 K/uL (0.1-1.30); MONOCYTES % (AUTO) 7.4 % (2.0-12.0); NEUTROPHILS # (AUTO) 4.6 K/uL (1.8-8.9); NEUTROPHILS % (AUTO) 77.9 % (43.0-81.0); PLATELET COUNT (AUTO) 81 K/uL (150-450); RED BLOOD CELL COUNT(AUTO) 2.28 MIL/uL (4.5-6.0); RED CELL DISTRIBUTION WIDTH 15.6 % (11.5-15.0)
[2023-12-04 08:00] VITALS: BP 136/94; TEMP 97.6; O2SAT 98
[2023-12-04 09:50] LABS: CALCIUM, SERUM 7.2 mg/dL (8.5-10.1); CARBON DIOXIDE 22 mmol/L (21-32); CHLORIDE 112 mmol/L (98-107); CREATININE 2.4 mg/dL (0.6-1.3); GLUCOSE 129 mg/dL (74-106); MAGNESIUM 2.9 mg/dL (1.8-2.4); PHOSPHORUS 3.9 mg/dL (2.5-4.9); POTASSIUM 4.9 mmol/L (3.5-5.1); SODIUM SERUM 143 mmol/L (136-145); UREA NITROGEN, BLOOD 78 mg/dL (7-18)
[2023-12-04 09:57] LABS: ANISOCYTOSIS 1+; BASOPHILS % (MANUAL) 0 % (0.0-2.0); EOSINOPHILS % (MANUAL) 5 % (0-4); LYMPHOCYTES % (MANUAL) 12 % (16-48); MONOCYTES % (MANUAL) 5 % (0-11.0); NEUTROPHILS % (MANUAL) 78 (42-76); OVALOCYTES 1+; PLATELET ESTIMATE DECREASED
[2023-12-04 12:00] VITALS: BP 129/46; TEMP 97.5; O2SAT 98
[2023-12-04] MEDS: RIFAXIMIN 550 MG TABLET PO SCH (13:45)
[2023-12-04 16:00] VITALS: BP 132/62; TEMP 97.8; O2SAT 98
[2023-12-04 20:00] VITALS: BP 115/48; TEMP 97.8; O2SAT 100
[2023-12-05] VITALS: BP 115/48; TEMP 97.8; O2SAT 100
[2023-12-05 04:00] VITALS: BP 121/45; TEMP 97.8; O2SAT 100
[2023-12-05 08:00] VITALS: BP 125/45; TEMP 97.7; O2SAT 100
[2023-12-05 08:48] LABS: HEMOGLOBIN 7.5 g/dL (13.5-17.5)
[2023-12-05 08:55] LABS: CALCIUM, SERUM 7.8 mg/dL (8.5-10.1); CARBON DIOXIDE 24 mmol/L (21-32); CHLORIDE 110 mmol/L (98-107); CREATININE 2.2 mg/dL (0.6-1.3); GLUCOSE 130 mg/dL (74-106); SODIUM SERUM 142 mmol/L (136-145); UREA NITROGEN, BLOOD 76 mg/dL (7-18)
[2023-12-05 09:01] LABS: ALANINE AMINOTRANSFERASE 14 U/L (12-78); ALBUMIN 1.5 g/dL (3.4-5.0); ALKALINE PHOSPHATASE 80 U/L (46-116); ASPARTATE AMINOTRANSFERASE 15 U/L (15-37); BILIRUBIN,TOTAL 0.3 mg/dL (0.2-1.0); TOTAL PROTEIN, SERUM 5.4 g/dL (6.4-8.2)
[2023-12-05] MEDS ORDERED: RIFA550T PO (11:50)
[2023-12-05 12:00] VITALS: BP 125/45; TEMP 97.7; O2SAT 100
[2024-01-28] MEDS ORDERED: Sodium Bicarbonate 150 MEQ in IV D5/0.45 NACL 1,000 ML IV SCH (07:00)
== END 2023-12-05 21:35 | DRG 432 ==
LOC: ER 18:12 → TRANSITION 22:50 → ICU 11-29 08:06 → TELE1 11-30 18:14 → MEDSG1 12-03 11:06
PROVIDERS: ADMIT Nurse Practitioner Acute Care; ATTEND Internal Medicine
PROC: 0W9G3ZZ Drainage of Peritoneal Cavity, Percutaneous Approach (ICD-10-PCS; principal; 2023-11-29)
DX: K74.60 Unspecified cirrhosis of liver (principal); E43 Unspecified severe protein-calorie malnutrition; N17.9 Acute kidney failure, unspecified; R18.8 Other ascites; N18.4 Chronic kidney disease, stage 4 (severe); E87.20 Acidosis, unspecified; K76.6 Portal hypertension; G93.40 Encephalopathy, unspecified; I12.9 Hypertensive chronic kidney disease with stage 1 through stage 4 chronic kidney disease, or unspecified chronic kidney disease; E11.22 Type 2 diabetes mellitus with diabetic chronic kidney disease; D64.9 Anemia, unspecified; E78.5 Hyperlipidemia, unspecified; E87.5 Hyperkalemia; E88.09 Other disorders of plasma-protein metabolism, not elsewhere classified; R16.1 Splenomegaly, not elsewhere classified; N40.0 Benign prostatic hyperplasia without lower urinary tract symptoms; Z88.0 Allergy status to penicillin; H40.9 Unspecified glaucoma; F32.A Depression, unspecified; Z68.30 Body mass index [BMI] 30.0-30.9, adult; E11.51 Type 2 diabetes mellitus with diabetic peripheral angiopathy without gangrene; Z79.4 Long term (current) use of insulin; Z20.822 Contact with and (suspected) exposure to COVID-19; L97.529 Non-pressure chronic ulcer of other part of left foot with unspecified severity; L97.519 Non-pressure chronic ulcer of other part of right foot with unspecified severity; R53.1 Weakness; Z79.84 Long term (current) use of oral hypoglycemic drugs; M89.8X9 Other specified disorders of bone, unspecified site; E87.70 Fluid overload, unspecified
CPT/HCPCS: 36415; 36600; 49083; 71045-TC; 76770-TC; 80048-TC; 80053-TC; 80076-TC; 82040-TC; 82140-TC; 82436-TC; 82550-TC; 82570-TC; 82803-TC; 82962-TC; 83690-TC; 83735-TC; 83880; 83935-TC; 83970; 84100-TC; 84133-TC; 84155; 84165; 84300-TC; 84484-TC; 85025-TC; 85027-TC; 85610-TC; 85730-TC; 87040-TC; 87081-TC; 89051-TC; 93307-TC; 97110-TC; 97116-TC; 97530-TC; A4216; A4223; C9113; G0378; J0692; J1170; J1815; J1940; J2270; J2405; J3490; J7030; J7060; P9047

== ENCOUNTER 2024-04-03 09:01 | Outpatient (CLI) | payer MEDICARE, OTHER ==
[~2024-04-03 09:01] MED LIST changes: -AMIN30LI2 PO; +AMIN887L7 PO; +ASCO500T10 PO; +CALC-1118 PO; -CALC1TAB30 PO; -CEFE1FRO IV; -CLOP75TA15 PO; +ESCI5TAB PO; +GABA-532 PO; +GLIM1TAB18 PO; -GLIM4TAB37 PO; +GLUC1KIT IM; +LOPE2CAP PO; -NEOM1OIN15 TP; -POVI1MED TP; +RIFA550T PO
== END 2024-04-03 23:59 | disposition home or self-care (01) ==
LOC: US 09:01
DX: R18.8 Other ascites (principal); I10 Essential (primary) hypertension; E11.9 Type 2 diabetes mellitus without complications; E78.5 Hyperlipidemia, unspecified; Z98.890 Other specified postprocedural states; Z79.899 Other long term (current) drug therapy
CPT/HCPCS: 49083